=== PATIENT | male | born 1955 | race Caucasian/White ===

== ENCOUNTER 2020-08-17 13:43 | Emergency (ER) | payer MEDICARE, MEDICAID, SELFPAY ==
--- NOTE | ~2020-08-17 | CT_ITS ---
EXAMINATION: CT abdomen pelvis wo con DATE: 08/17/2020 14:07 INDICATION: Right flank and upper quadrant pain TECHNIQUE: Computed tomography (CT) of the abdomen and pelvis was performed without intravenous contr ast. The dose-length product (DLP) was 706.60 mGy-cm. Automated exposure control and iterative recons truction technique were employed. COMPARISON: None FINDINGS: The lung bases are clear. The heart size is normal. The liver, spleen, gallbladder, and adr enal glands are normal. Punctate calcifications of the pancreas are consistent with chronic pancreati tis. There is a 2.3 cm cyst of the left kidney. The kidneys are otherwise unremarkable. No stones are identified in the kidneys, ureters, or bladder. There is no hydronephrosis or hydroureter. No pathol ogically enlarged abdominal or pelvic lymph nodes are identified. There is no free intraperitoneal ga s or evidence of bowel obstruction. A moderate volume of colonic stool is present. There is mild enla rgement of the appendix. However, there is intraluminal gas in the appendix and no periappendiceal in flammatory change. Enlargement is likely normal variant. There is moderate lumbar spondylosis. IMPRESSION: 1. No CT correlate for the patient's symptoms. 2. Findings consistent with chronic pancreatitis. Reviewed, dictated and finalized at location A. [employer]
--- NOTE | ~2020-08-17 | US_ITS ---
US abdomen limited INDICATION: Right upper quadrant pain. PROCEDURE: Realtime right upper abdominal ultrasound. COMPARISON: No prior studies for comparison. FINDINGS: The pancreas is normal without focal mass or pancreatic ductal dilation. Liver echotexture is heterogeneous and slightly increased, consistent with fatty infiltration of the liver. There is normal directional flow in the portal vein. The gallbladder is normal without stones, gallbladder wall thickening or pericholecystic fluid. Comm on bile duct measures 4.7 mm. IMPRESSION: 1: Hepatic steatosis. Otherwise, unremarkable limited abdominal ultrasound. Reviewed, dictated and finalized at location A. [employer]
[2020-08-17 13:48] VITALS: BP 146/90; PULSE 84; RESP 20; TEMP 37; O2SAT 97
--- NOTE | 2020-08-17 13:57 | ED.GENADULT ---
HPI - General Adult General Chief complaint: Urogenital-Male Stated complaint: ambulance Time Seen by Provider: 08/17/20 13:49 Source: patient and EMS Mode of arrival: ambulatory Limitations: no limitations History of Present Illness HPI narrative: Getachew is a 64M with a PMH of depression, tobacco abuse, adjustment disorder and HTN that was brought to the ED by EMS for right flank pain and RUQ pain. Pain began last night but began to get must worse this morning. It became so bad that he had to call EMS. No CP, SOB, vomiting, dysuria, or hematuria. No fevers or chills. Related Data Allergies Allergy/AdvReac Type Severity Reaction Status Date / Time No Known Allergies Allergy Verified 08/17/20 14:05 Review of Systems Constitutional: Constitutional: Reports no additional constitutional complaints, Denies chills and Denies fever(s) Eyes: Eyes: Reports no additional eye complaints ENT: Reports system reviewed and no additional complaints, except as documented Cardiovascular: Cardiovascular: Reports no additional cardiovascular complaints Respiratory: Respiratory: Reports no additional respiratory complaints Gastrointestinal: Gastrointestinal: Reports as per HPI Comments: APOLLO and right flank pain Genitourinary: Genitourinary: Reports as per HPI Musculoskeletal: Musculoskeletal: Reports no additional musculoskeletal complaints Integumentary/Breasts: Skin/Breast: Reports system reviewed and no additional complaints, except as docu Neurologic: Reports system reviewed and no additional complaints, except as documented Psychiatric: Psychiatric: Reports no additional psychiatric complaints Endocrine: Endocrine: Reports no additional endocrine complaints Hematologic/Lymphatic: Hematologic/Lymphatic: Reports no additional hematologic/lymphatic complaints Allergic/Immunologic: Allergic/Immunologic: Reports no additional allergic/immunologic complaints [facility] Past Medical History Medical History (Updated 08/17/20 @ 16:25 by Jarad Mora DO) Adjustment disorder Depression Hypertension Nicotine dependence Surgical History Surgical History History of back surgery 3 surgeries. Ruptured discs. . History of left knee surgery Family History Family History Father , Age 87 Hypertension Diabetes mellitus CAD (coronary artery disease) Mother , Age 74 Aortic aneurysm Father Family history of type 2 diabetes mellitus Hypertension Family history of coronary artery disease Mother Family history of aortic aneurysm Social History Social History Smoking packs per day: 1 Smoking cigarettes per day: 20.0 Years smoked: 47 Smoking pack-years: 47.00 Smoking status: Current every day smoker Alcohol intake: unknown Gender identity (if verbalized by the patient): Male Exam Const: General: alert Orientation/consciousness: patient oriented x3 Limitations: No altered mental status Other: In moderate distress from the pain and did have a little trouble giving history at first but improved after meds. HENMT: Other: normocephalic, atraumatic Eyes: Pupils: Equal, round and reactive pupils present Neck: Neck: normal visual inspection Chest: Chest palpation & inspection: normal inspection of the chest Resp: Effort & Inspection: normal respiratory effort Auscultation: clear to auscultation bilaterally Cardio: Rate: regular rate Rhythm: regular rhythm Heart sounds: no murmurs GI: Inspection: non-distended GI Palp: Yes Soft to palpation, No Tenderness to palpation present (GI), No Guarding due to palpation present (GI) and No Rigid due to palpation : Other: Left sided CVA tenderness Skin: General skin exam: normal color Rashes: no rashes Neuro: General: patient oriented x3, moves all
[2020-08-17 14:29] LABS: Basophils Absolute Auto 0.04 K/mm3 (0.00-0.10); Basophils Percent Auto 0.3 % (0.0-1.0); Eosinophils Absolute Auto 0.08 K/mm3 (0.02-0.50); Eosinophils Percent Auto 0.7 % (1.0-6.0); Hematocrit 44.1 % (40.0-54.0); Hemoglobin 15.1 g/dL (14.0-18.0); Immature Granulocyte Absolute 0.07 K/mm3 (0.00-0.00); Immature Granulocyte Percent A 0.6 % (0.0-0.0); Lymphocytes Absolute Auto 2.68 K/mm3 (1.10-4.50); Lymphocytes Percent Auto 22.2 % (18.0-42.0); Mean Corpuscular HGB Conc 34.2 g/dL (32.0-36.0); Mean Corpuscular Hemoglobin 31.4 pg (27.0-31.0); Mean Corpuscular Volume 91.7 fL (78.0-102.0); Mean Platelet Volume 9.3 fl (8.7-11.0); Monocytes Absolute Auto 0.73 K/mm3 (0.10-0.90); Monocytes Percent Auto 6.1 % (2.0-11.0); Neutrophils Absolute Auto 8.5 K/mm3 (1.7-7.2); Neutrophils Percent Auto 70.1 % (50.0-70.0); Platelet Count Result 302 K/mm3 (150-420); Red Blood Count 4.81 M/mm3 (4.70-6.10); Red Cell Distribution Width 12.1 % (11.6-14.4); White Blood Count 12.1 K/mm3 (4.8-10.8)
[2020-08-17 14:48] LABS: Alanine Aminotransferase 28 U/L (16-63); Albumin Level 3.7 g/dL (3.4-5.0); Alkaline Phosphatase 86 U/L (46-116); Anion Gap 12 mmol/L (8-16); Aspartate Amino Transferase 12 U/L (15-37); Bilirubin,Total 0.3 mg/dL (0.00-1.00); Blood Urea Nitrogen 15 mg/dL (7-18); Calcium 9.1 mg/dL (8.5-10.1); Carbon Dioxide 25 mmol/L (21-32); Chloride 99 mmol/L (98-108); Estimated CRCL calculation 59 ml/min; Estimated Glomerular Filt Rate 59; Glucose 197 mg/dL (70-99); Lipase 393 U/L (73-393); Osmolality Calculated 287 mOsm/kg (285-295); Potassium 4.2 mmol/L (3.5-5.1); Sodium 136 mmol/L (136-145); Total Protein 8.2 g/dL (6.4-8.2)
[2020-08-17 15:30] VITALS: BP 148/91; PULSE 80; RESP 20; O2SAT 97
[2020-08-17 16:03] LABS: Appearance Urine Clear (Clear); Bilirubin Urine Negative (Negative); Color Urine Yellow (Yellow); Glucose Urine UA Negative (Negative); Ketones Urine Negative (Negative); Leukocyte Esterase Ur Negative (Negative); Nitrate Urine Negative (Negative); Protein Urine Trace (Negative); Urobilinogen Urine 0.2 mg/dL (0.2-1.0)
[2020-08-17 16:22] LABS: Add Urine Microscopic? YES; Blood Urine Trace-lysed (Negative)
[2020-08-17 16:23] LABS: Transitional Epi Cells Urine Occasional /hpf
[2020-08-17 16:54] VITALS: BP 145/96; PULSE 79; RESP 20; TEMP 36.6; O2SAT 96
== END 2020-08-17 16:56 | disposition home or self-care (01) ==
PROVIDERS: Emergency Provider Family Medicine; PCP Family Medicine
DX: K86.1 Other chronic pancreatitis (principal); I10 Essential (primary) hypertension; F17.200 Nicotine dependence, unspecified, uncomplicated
CPT/HCPCS: 36415; 74176; 76705; 80053; 81001; 83690; 85025; 99283; 99284

== ENCOUNTER 2021-02-14 12:45 | Inpatient (IN) | payer MEDICARE, MEDICAID, SELFPAY ==
--- NOTE | ~2021-02-14 | XR_ITS ---
EXAMINATION: XR chest 1V portable INDICATION: Weakness, COVID 19 positive TECHNIQUE: Portable AP chest at 1357 hours COMPARISON: 12/10/2017 FINDINGS: There are minimal opacities of the mid and lower lung zones. No pleural effusion or pneumot horax is identified. The cardiomediastinal silhouette is stable. IMPRESSION: 1. Minimal airspace opacities of the mid and lower lung zones, consistent with atelectasis versus pne umonia. Reviewed, dictated and finalized at location B. IMPRESSION: 1. Minimal airspace opacities of the mid and lower lung zones, consistent with atelectasis versus pneumonia.
[2021-02-14 13:27] LABS: SARS-CoV-2 Ag Positive (Negative)
[2021-02-14 13:32] VITALS: BP 131/86; PULSE 72; RESP 14; TEMP 37.4; O2SAT 98
[2021-02-14 13:49] LABS: Hematocrit 40.9 % (37.0-46.0); Hemoglobin 14.2 g/dL (12.4-15.3); Mean Corpuscular HGB Conc 34.7 g/dL (32.0-36.0); Mean Corpuscular Hemoglobin 32.2 pg (27.0-31.0); Mean Corpuscular Volume 92.7 fL (78.0-102.0); Mean Platelet Volume 9.4 fl (8.7-11.0); Platelet Count Result 192 K/mm3 (150-420); Red Blood Count 4.41 M/mm3 (4.70-6.10); Red Cell Distribution Width 12.4 % (11.6-14.4); White Blood Count 5.3 K/mm3 (4.8-10.8)
[2021-02-14 14:04] LABS: Partial Thromboplastin Time 30.2 SEC (23.90-30.70); Prothrombin Time 10.7 Seconds (9.50-12.10)
--- NOTE | 2021-02-14 14:10 | ED.SOB ---
HPI - SOB/Dyspnea General Chief Complaint: Weakness Stated Complaint: SOB/Weak/dizzy Source: patient and RN notes reviewed Mode of arrival: ambulatory Limitations: no limitations History of Present Illness MD elicited complaint: shortness of breath and cough Onset (ago): day(s) (4) Timing: constant Severity: moderate Exacerbating factors: lying flat, exertion and coughing Relieving factors: nothing Associated symptoms: fever, cough and nausea/vomiting Treatment prior to arrival: none Related Data Home oxygen amount: none Allergies Allergy/AdvReac Type Severity Reaction Status Date / Time No Known Allergies Allergy Verified 08/26/20 10:54 Review of Systems Review of Systems: All systems reviewed & are unremarkable except as noted in HPI and below Constitutional: Constitutional: Reports as per HPI Cardiovascular: Cardiovascular: Denies chest pain and Denies rapid heart rate Respiratory: Respiratory: Reports as per HPI Gastrointestinal: Gastrointestinal: Reports as per HPI and Denies diarrhea Genitourinary: Genitourinary: Denies dysuria and Denies urinary frequency [facility] Past Medical History Medical History Adjustment disorder Chronic pancreatitis Depression Fatty liver Hypertension Nicotine dependence Umbilical hernia Surgical History Surgical History History of back surgery 3 surgeries. Ruptured discs. . History of left knee surgery Family History Family History Father , Age 87 Hypertension Diabetes mellitus CAD (coronary artery disease) Mother , Age 74 Aortic aneurysm Social History Social History Smoking packs per day: 1 Smoking cigarettes per day: 20.0 Years smoked: 47 Smoking pack-years: 47.00 Smoking status: Current every day smoker Alcohol intake: unknown Gender identity (if verbalized by the patient): Male Exam Const: General: no acute distress and ill appearing acutely Nutritional Appearance: well nourished and thin Orientation/consciousness: patient oriented x3 HENMT: Head: normal to inspection Ears: external ears normal Eyes: Conjunctivae: conjunctivae normal Pupils: Equal, round and reactive pupils present EOM: EOMs intact bilaterally Neck: Neck: normal visual inspection Resp: Effort & Inspection: normal respiratory effort Auscultation: rhonchi left upper and right upper Cardio: Rate: regular rate Rhythm: regular rhythm GI: GI Palp: Yes Soft to palpation and No Tenderness to palpation present (GI) Auscultation: normal bowel sounds Back/Spine/Pelvis: Cervical Spine: cervical ROM normal Thoracic/Lumbar Spine: thoraco-lumbar ROM normal Skin: General skin exam: normal color Rashes: no rashes Neuro: General: patient oriented x3, moves all extremities, no meningeal signs and no focal motor deficits Speech: normal speech Gait exam (Neuro): Normal gait present Psych: Mental Status: mental status grossly normal Affect: normal affect Attitude: cooperative Thought content: Yes Normal thought content present Course Vital Signs Vital signs: Vital Signs Temperature 37.4 C 02/14/21 13:32 Pulse Rate 72 02/14/21 13:32 Respiratory Rate 14 02/14/21 13:32 Blood Pressure 131/86 02/14/21 13:32 Pulse Oximetry 98 02/14/21 13:32 Temperature 37.4 C 02/14/21 13:32 Pulse Rate 73 02/14/21 14:52 Respiratory Rate 22 H 02/14/21 14:52 Blood Pressure 109/95 H 02/14/21 14:52 Pulse Oximetry 99 02/14/21 14:52 MDM - SOB/Dyspnea Lab Data Result diagrams: 02/14/21 13:43 02/14/21 13:43 Labs: Lab Results 02/14/21 02/14/21 02/14/21 Range/Units 12:57 13:43 13:43 WBC 5.3 (4.8-10.8) K/mm3 RBC 4.41 L (4.70-6.10) M/mm3 Hgb 14.2 (12.4-15.3) g/
[2021-02-14 14:11] LABS: D Dimer 0.89 mg/L (0.19-0.50)
[2021-02-14 14:17] LABS: Alanine Aminotransferase 33 U/L (16-63); Albumin Level 3.7 g/dL (3.4-5.0); Alkaline Phosphatase 83 U/L (46-116); Anion Gap 11 mmol/L (8-16); Aspartate Amino Transferase 18 U/L (15-37); Bilirubin,Total 0.2 mg/dL (0.00-1.00); Blood Urea Nitrogen 17 mg/dL (7-18); Calcium 8.3 mg/dL (8.5-10.1); Carbon Dioxide 25 mmol/L (21-32); Chloride 101 mmol/L (98-108); Estimated CRCL calculation 55 ml/min; Estimated Glomerular Filt Rate 54; Ferritin 531 ng/mL (26-388); Glucose 137 mg/dL (70-99); Magnesium 1.7 mg/dL (1.8-2.4); Osmolality Calculated 287 mOsm/kg (285-295); Potassium 3.8 mmol/L (3.5-5.1); Sodium 137 mmol/L (136-145); Total Protein 7.2 g/dL (6.4-8.2)
[2021-02-14 14:26] LABS: CRP 0.8 mg/dL (0.0-0.9)
[2021-02-14 14:35] LABS: Band Neutrophils Percent 2 % (0-6); Lymphocytes Absolute Manual 1.59 K/mm3 (1.1-4.5); Lymphocytes Percent Manual 30 % (18-44); Monocytes Absolute Manual 0.63 K/mm3 (0.1-0.90); Monocytes Percent Manual 12 % (3-9); Neutrophils Absolute Manual 3.07 K/mm3 (1.3-6.7); Neutrophils Percent Manual 56 % (46-73); Platelet Estimate Adequate (Adequate); Total Cells Counted 100
[2021-02-14] MEDS: DEXAMETHASONE SOD PHOS INJ 4 MG/ML VIAL 10 MG IV PUSH (14:45)
[2021-02-14 14:52] VITALS: BP 109/95; PULSE 73; RESP 22; O2SAT 99
[2021-02-14 16:00] VITALS: BP 114/84; PULSE 70; RESP 20; TEMP 37.4; O2SAT 98
[2021-02-14 16:30] VITALS: BP 113/78; PULSE 90; RESP 22; O2SAT 98
[2021-02-14] MEDS: ALBUTEROL SULFATE (*SP) INHALER 2 PUFF INHALATION ×2 (17:44→20:01)
--- NOTE | 2021-02-14 17:47 | PC.NURSE ---
PAtient admitted to room 209 with isolation precautions fro covid, is alert and oriented with no c/o pain, oriented to room and surroundings, voices understanding.
[2021-02-14 17:49] VITALS: BMI 26.7
[2021-02-14] MEDS: REMDESIVIR 200 MG/NS 250 ML 200 MG/250 ML BAG 250 MG IVPB (19:04)
[2021-02-14] MEDS: ENOXAPARIN 30 MG/0.3 ML SYRINGE SUB-Q (19:05)
[2021-02-14 21:43] VITALS: BP 127/67; PULSE 80; RESP 20; TEMP 37.3; O2SAT 95
[2021-02-14] MEDS: traZODone HCL 50 MG TABLET (22:21)
[2021-02-15] VITALS: BP 124/74; PULSE 91; RESP 20; TEMP 36.4; O2SAT 95
[2021-02-15] MEDS: ENOXAPARIN 30 MG/0.3 ML SYRINGE SUB-Q (05:06)
[2021-02-15 05:26] LABS: Basophils Absolute Auto 0.01 K/mm3 (0.00-0.10); Basophils Percent Auto 0.1 % (0.0-1.0); Hematocrit 43.4 % (37.0-46.0); Immature Granulocyte Absolute 0.05 K/mm3 (0.00-0.00); Immature Granulocyte Percent A 0.6 % (0.0-0.0); Lymphocytes Absolute Auto 0.99 K/mm3 (1.10-4.50); Mean Corpuscular HGB Conc 34.6 g/dL (32.0-36.0); Mean Corpuscular Hemoglobin 31.9 pg (27.0-31.0); Mean Corpuscular Volume 92.3 fL (78.0-102.0); Mean Platelet Volume 10.1 fl (8.7-11.0); Monocytes Absolute Auto 0.55 K/mm3 (0.10-0.90); Monocytes Percent Auto 6.1 % (2.0-11.0); Neutrophils Absolute Auto 7.4 K/mm3 (1.7-7.2); Neutrophils Percent Auto 82.2 % (50.0-70.0); Platelet Count Result 218 K/mm3 (150-420); Red Cell Distribution Width 12.3 % (11.6-14.4)
[2021-02-15 05:44] LABS: Alanine Aminotransferase 33 U/L (16-63); Albumin Level 3.7 g/dL (3.4-5.0); Alkaline Phosphatase 82 U/L (46-116); Anion Gap 10 mmol/L (8-16); Aspartate Amino Transferase 17 U/L (15-37); Bilirubin,Total 0.2 mg/dL (0.00-1.00); Blood Urea Nitrogen 19 mg/dL (7-18); Carbon Dioxide 27 mmol/L (21-32); Chloride 103 mmol/L (98-108); Estimated CRCL calculation 62 ml/min; Estimated Glomerular Filt Rate > 60; Glucose 196 mg/dL (70-99); Osmolality Calculated 297 mOsm/kg (285-295); Potassium 4.6 mmol/L (3.5-5.1); Sodium 140 mmol/L (136-145); Total Protein 7.6 g/dL (6.4-8.2)
[2021-02-15 08:00] VITALS: BP 125/91; PULSE 84; RESP 16; TEMP 36.4; O2SAT 94
--- NOTE | 2021-02-15 11:48 | PM.SD2 ---
Same Day Admit/Disch: HPI History of Present Illness Chief complaint: COVID WEAKNESS Narrative: Getachew Méndez is a 65 year old male that presented to urgent care after having 4 days of nausea vomiting, body aches, headaches and fatigue. Patient has a past medical history of chronic pancreatitis, depression, hypertension, nicotine dependence. Patient's vital signs 125/91, 84, 16, 97.5, 94% on room air, WBCs 9.0 hemoglobin 15.0 hematocrit 43.4, platelets 218, sodium 140, potassium 4.6, BUN 19 creatinine 1.32 magnesium 1.7 liver function test within normal limits, positive covid chest x-ray indicate Covid pneumonia. Patient condition has improved he is currently satting 95% on room air I did ambulate patient to the restroom by monitoring his oxygen level which was 100% on room air. Patient agrees he is ready for discharge he will be discharged with dexamethasone, inhalers cough suppressant and decongestant. He will have to follow-up with his primary care physician if further remdesivir treatment is needed. [facility] Past Medical History Medical History Adjustment disorder Chronic pancreatitis Depression Fatty liver Hypertension Nicotine dependence Umbilical hernia Surgical History Surgical History History of back surgery 3 surgeries. Ruptured discs. . History of left knee surgery Family History Family History Father , Age 87 Hypertension Diabetes mellitus CAD (coronary artery disease) Mother , Age 74 Aortic aneurysm Social History Social History Smoking packs per day: 1 Smoking cigarettes per day: 20.0 Years smoked: 47 Smoking pack-years: 47.00 Smoking status: Current every day smoker Tobacco type: cigarettes Alcohol intake: unknown Substance use: unknown Gender identity (if verbalized by the patient): Male Spiritual care concerns: No Same Day Admit/Disch: Med Pre-admit Medications Home Medications Medication Instructions Recorded Confirmed Type metoprolol tartrate 25 mg tablet 25 mg PO BID #60 tablet 09/27/20 02/14/21 Rx sertraline 50 mg tablet 50 mg PO DAILY #30 tablet 09/27/20 02/14/21 Rx Exam Narrative: GENERAL: This is a well-nourished, well-developed patient, in no apparent distress. HEAD: normocephalic, atraumatic. EYES: PERRL. Sclera clear/white. Vision is grossly intact. EARS: External ears normal, auditory canals clear and without drainage, TMs normal without perforation. Hearing grossly intact. NOSE: External nose normal with no obvious nasal discharge, nares without redness, no rhinorrhea. THROAT: Mucous membranes moist, posterior pharynx clear. NECK: Neck supple, non-tender without lymphadenopathy, masses or thyromegaly. CARDIOVASCULAR: Regular rate and rhythm without murmurs, gallops, or rubs. RESPIRATORY: Diminished GASTROINTESTINAL: Abdomen soft, non-tender, nondistended. Bowel sounds are active. No hepato-splenomegaly, or palpable masses. No guarding. SKIN: warm, intact with no suspicious lesions or rash, good texture and turgor. NEURO: awake, alert, and oriented to person, place and time. There were no obvious focal neurologic abnormalities. Steady gait EXTREMITIES: Normal range of motion. No edema. No calf tenderness. Negative Homans sign bilaterally. BACK: Nontender without deformity or crepitance. No flank tenderness. DS: Data Data Completed and Pending Labs on day of discharge: Labs from last 24 hours 02/15/21 02/15/21 02/15/21 05:02 05:02 05:02 WBC 9.0 RBC 4.70 Hgb 15.0 Hct 43.4 MCV 92.3 MCH 31.9 H MCHC 34.6 RDW 12.3 Plt Count 218 MPV 10.1 Immature Gran % (Auto) 0.6 H Neut % (Auto) 82.2 H Lymph % (Auto) 11.0 L [place] % (Auto) 6.1 Eos % (Auto) 0.0 L Baso % (Auto
--- NOTE | 2021-02-15 14:47 | PC.NURSE ---
Pt discharged in stable condition. Discharge instructions given to pt. Isolation status reviewed with pt. Pt verbalized understanding of instructions. Pt taken to family car via WC by this RN.
--- NOTE | 2021-02-16 14:20 | PC.NURSE ---
Pt states he received and understood his discharge instructions. Pt also states the staff did great .
== END 2021-02-15 14:20 | disposition home or self-care (01) | DRG 178 ==
LOC: CHSED 15:12 → CHS2ND 16:26
PROVIDERS: Admitting Provider Emergency Medicine; Emergency Provider Emergency Medicine; PCP Family Medicine; Visit Provider Emergency Medicine
DX: U07.1 COVID-19 (principal); K86.1 Other chronic pancreatitis; K76.0 Fatty (change of) liver, not elsewhere classified; F32.9 Major depressive disorder, single episode, unspecified; F17.200 Nicotine dependence, unspecified, uncomplicated; F43.20 Adjustment disorder, unspecified; I10 Essential (primary) hypertension; F17.210 Nicotine dependence, cigarettes, uncomplicated
CPT/HCPCS: 36415; 71045; 80053; 82728; 83735; 85025; 85380; 85610; 85730; 86140; 87426; 96374; 99285; A9270; C9803; J1100; J1650

== ENCOUNTER 2021-02-24 13:20 | Emergency (ER) | payer MEDICARE, MEDICAID, SELFPAY ==
--- NOTE | ~2021-02-24 | XR_ITS ---
EXAMINATION: XR chest 1V portable INDICATION: Left-sided chest pain, COVID 19 pneumonia TECHNIQUE: Portable AP chest at 1440 hours COMPARISON: 02/14/2021 FINDINGS: There are patchy opacities of the mid and lower lung zones. No pleural effusion or pneumoth orax is identified. The cardiomediastinal silhouette is normal. IMPRESSION: 1. Patchy opacities of the mid and lower lung zones, likely COVID 19 pneumonia. Reviewed, dictated and finalized at location A.
[2021-02-24 13:20] VITALS: BP 111/76; PULSE 69; RESP 20; TEMP 37.1; O2SAT 98
[2021-02-24 13:25] VITALS: PULSE 69
--- NOTE | 2021-02-24 13:34 | ECG_ITS ---
Measurements Intervals [place] Rate: 62 P: 35 GA: 127 QRS: 62 QRSD: 72 T: 18 QT: 356 QTc: 362 Interpretive Statements SINUS RHYTHM NORMAL ECG Electronically Signed On 02-24-2021 14:07:22 CDT by Tate Romero D.O.
[2021-02-24 14:05] LABS: Basophils Absolute Auto 0.09 K/mm3 (0.00-0.10); Basophils Percent Auto 0.6 % (0.0-1.0); Eosinophils Absolute Auto 0.07 K/mm3 (0.02-0.50); Eosinophils Percent Auto 0.5 % (1.0-6.0); Hematocrit 41.3 % (37.0-46.0); Immature Granulocyte Absolute 0.91 K/mm3 (0.00-0.00); Immature Granulocyte Percent A 6.3 % (0.0-0.0); Lymphocytes Percent Auto 16.6 % (18.0-42.0); Mean Corpuscular HGB Conc 33.9 g/dL (32.0-36.0); Mean Corpuscular Hemoglobin 31.6 pg (27.0-31.0); Mean Corpuscular Volume 93.2 fL (78.0-102.0); Mean Platelet Volume 9.8 fl (8.7-11.0); Monocytes Absolute Auto 1.09 K/mm3 (0.10-0.90); Monocytes Percent Auto 7.5 % (2.0-11.0); Neutrophils Absolute Auto 9.9 K/mm3 (1.7-7.2); Neutrophils Percent Auto 68.5 % (50.0-70.0); Platelet Count Result 213 K/mm3 (150-420); Red Blood Count 4.43 M/mm3 (4.70-6.10); Red Cell Distribution Width 12.6 % (11.6-14.4); White Blood Count 14.5 K/mm3 (4.8-10.8)
--- NOTE | 2021-02-24 14:16 | ED.GENADULT ---
HPI - General Adult General Chief complaint: Weakness Stated complaint: ambulance Source: patient Mode of arrival: EMS History of Present Illness HPI narrative: Eleuterio Méndez is a 65M with a PMH of fatty liver, chronic pancreatitis, nicotine abuse and HTN as well as recent admission for COVID pneumonia that presented to the ED by EMS for worsening symptoms.He was admitted from 02/14 to 02/15. He felt well when he was discharged but has felt worse the last few days. He is very tired, fatigued, achy, has a headache, and get short of breath easy. He has also had a constant dull chest pain for a few days as well. He has been compliant with his meds. He denies syncope. Related Data Allergies Allergy/AdvReac Type Severity Reaction Status Date / Time No Known Allergies Allergy Verified 02/23/21 14:14 Review of Systems Constitutional: Constitutional: Reports fatigue and Reports weakness Eyes: Eyes: Reports no additional eye complaints ENT: Reports system reviewed and no additional complaints, except as documented Cardiovascular: Cardiovascular: Reports as per HPI Respiratory: Respiratory: Reports as per HPI Gastrointestinal: Gastrointestinal: Reports nausea Genitourinary: Genitourinary: Reports no additional male genitourinary complaints Musculoskeletal: Musculoskeletal: Reports as per HPI Integumentary/Breasts: Skin/Breast: Reports system reviewed and no additional complaints, except as docu Neurologic: Reports system reviewed and no additional complaints, except as documented Psychiatric: Psychiatric: Reports no additional psychiatric complaints Endocrine: Endocrine: Reports no additional endocrine complaints Hematologic/Lymphatic: Hematologic/Lymphatic: Reports no additional hematologic/lymphatic complaints Allergic/Immunologic: Allergic/Immunologic: Reports no additional allergic/immunologic complaints [facility] Past Medical History Medical History Adjustment disorder Chronic pancreatitis Depression Fatty liver Hypertension Nicotine dependence Umbilical hernia Surgical History Surgical History History of back surgery 3 surgeries. Ruptured discs. . History of left knee surgery Family History Family History Father , Age 87 Hypertension Diabetes mellitus CAD (coronary artery disease) Mother , Age 74 Aortic aneurysm Social History Social History Smoking packs per day: 1 Smoking cigarettes per day: 20.0 Years smoked: 47 Smoking pack-years: 47.00 Smoking status: Current every day smoker Tobacco type: cigarettes Alcohol intake: unknown Substance use: unknown Gender identity (if verbalized by the patient): Male Spiritual care concerns: No Exam Const: General: no acute distress and alert; No confusion Limitations: No altered mental status HENMT: Head: normal to inspection Other: atraumatic Eyes: Conjunctivae: conjunctivae normal Pupils: Equal, round and reactive pupils present Neck: Neck: normal visual inspection Chest: Chest palpation & inspection: normal inspection of the chest Resp: Effort & Inspection: normal respiratory effort, not labored, no retractions and not tachypneic Other: slight end expiratory wheezes Cardio: Rate: regular rate Rhythm: regular rhythm GI: Inspection: non-distended GI Palp: Yes Soft to palpation, No Tenderness to palpation present (GI) and No Guarding due to palpation present (GI) Back/Spine/Pelvis: Back: no CVA tenderness Skin: General skin exam: normal color Neuro: General: patient oriented x3 and moves all extremities Extrem: General: normal to inspection Psych: Mental Status: mental status grossly normal Course Course Emergency Course: Getachew was evaluated. Order
[2021-02-24 14:17] LABS: Prothrombin Time 10.5 Seconds (9.50-12.10)
[2021-02-24 14:27] LABS: Alanine Aminotransferase 44 U/L (16-63); Albumin Level 2.8 g/dL (3.4-5.0); Alkaline Phosphatase 69 U/L (46-116); Anion Gap 8 mmol/L (8-16); Aspartate Amino Transferase 14 U/L (15-37); Bilirubin,Total 0.3 mg/dL (0.00-1.00); Blood Urea Nitrogen 21 mg/dL (7-18); Calcium 8.3 mg/dL (8.5-10.1); Carbon Dioxide 27 mmol/L (21-32); Chloride 97 mmol/L (98-108); Estimated CRCL calculation 53 ml/min; Estimated Glomerular Filt Rate 52; Glucose 252 mg/dL (70-99); Lipase 263 U/L (73-393); NT Pro B Type Natriuretic Pept 34 pg/mL (0-125); Osmolality Calculated 286 mOsm/kg (285-295); Potassium 4.2 mmol/L (3.5-5.1); Sodium 132 mmol/L (136-145); Total Protein 6.1 g/dL (6.4-8.2)
[2021-02-24 14:28] LABS: CRP 4.6 mg/dL (0.0-0.9)
[2021-02-24 14:29] LABS: Influenza Control Valid (Valid)
[2021-02-24 14:41] LABS: Total Cells Counted 100
[2021-02-24 14:42] LABS: Band Neutrophils Percent 1 % (0-6); Basophils Percent Manual 0 % (0-1); Eosinophils Percent Manual 0 % (1-6); Lymphocytes Absolute Manual 2.17 K/mm3 (1.1-4.5); Lymphocytes Percent Manual 15 % (18-44); Metamyelocytes Percent 3 %; Monocytes Absolute Manual 1.01 K/mm3 (0.1-0.90); Monocytes Percent Manual 7 % (3-9); Myelocytes Percent 4 %; Neutrophils Absolute Manual 10.29 K/mm3 (1.3-6.7); Neutrophils Percent Manual 70 % (46-73); Platelet Estimate Adequate (Adequate)
[2021-02-24 14:45] LABS: Lactic Acid Reflex 1.8 mmol/L (0.4-2.0)
[2021-02-24] MEDS: ALBUTEROL SULFATE (*SP) INHALER 2 PUFF INHALATION (14:48)
[2021-02-24 15:08] VITALS: BP 126/83; PULSE 72; RESP 20; TEMP 36.3; O2SAT 100
--- NOTE | 2021-02-24 15:11 | PC.NURSE ---
1400 PT RESTING PER COT. 1430 PT RESTING PER COT, NO COMPLAINTS OR NEEDS VOICED. CALL FAM IN REACH 1500 REPORT TO SARAH DIOR
[2021-02-24 15:12] LABS: Add Urine Microscopic? YES; Appearance Urine Clear (Clear); Bilirubin Urine Negative (Negative); Blood Urine Negative (Negative); Color Urine Yellow (Yellow); Glucose Urine UA 2+ (Negative); Ketones Urine Negative (Negative); Leukocyte Esterase Ur Negative (Negative); Nitrate Urine Negative (Negative); Protein Urine Trace (Negative); Specific Grav Ur >= 1.030 (1.010-1.020); Urobilinogen Urine 0.2 mg/dL (0.2-1.0); pH Urine 5.5 (5.0-8.0)
[2021-02-24 15:20] LABS: Bacteria Urine 3+ /hpf; Mucus Urine Few /lpf; RBC Urine 0-2 /hpf (0-2); Squamous Epithelial Cell Urine None seen /hpf (Few); WBC Urine 0-3 /hpf (0-3)
[2021-02-24] MEDS: SODIUM CHLORIDE 0.9% IV 1,000 ML 999 ML IV CONT (15:44)
[2021-02-24 16:16] VITALS: BP 107/62; PULSE 79; RESP 18; O2SAT 98
[2021-02-24 16:45] VITALS: BP 100/82; PULSE 79; RESP 20; O2SAT 98
== END 2021-02-24 16:46 | disposition home or self-care (01) ==
PROVIDERS: Emergency Provider Family Medicine; PCP Family Medicine
DX: E86.0 Dehydration (principal); U07.1 COVID-19; J12.82 Pneumonia due to coronavirus disease 2019; R73.9 Hyperglycemia, unspecified; R06.02 Shortness of breath; I10 Essential (primary) hypertension; F17.200 Nicotine dependence, unspecified, uncomplicated
CPT/HCPCS: 36415; 71045; 80053; 81001; 83605; 83690; 83880; 84484; 85025; 85060; 85610; 86140; 87804; 93005; 96360; 99283; 99284; J7030

== ENCOUNTER 2022-11-14 14:47 | Emergency (ER) | payer MEDICARE, SELFPAY ==
[2022-11-14] VITALS (12 sets, daily range): BP systolic 126–152; BP diastolic 77–94; PULSE 52–74; RESP 14–21; TEMP 36.2; O2SAT 96–99
--- NOTE | ~2022-11-14 | XR_ITS ---
EXAMINATION: XR chest 2V DATE: 11/14/2022 16:01 INDICATION: Left shoulder pain. TECHNIQUE: Frontal and lateral views of the chest were obtained. COMPARISON: Chest single view 02/24/2021, CT abdomen and pelvis 08/17/2020 FINDINGS: There is no pneumonia, pleural effusion, or pneumothorax. The heart size is normal. IMPRESSION: 1. No acute cardiopulmonary disease. Reviewed, dictated and finalized at location A.
--- NOTE | 2022-11-14 15:34 | ECG_ITS ---
Measurements Intervals [place] Rate: 60 P: 46 CO: 214 QRS: 36 QRSD: 82 T: 70 QT: 406 QTc: 408 Interpretive Statements SINUS RHYTHM WITH FIRST DEGREE AV BLOCK COMPARED TO ECG 02/24/2021 13:44:51 FIRST DEGREE AV BLOCK NOW PRESENT Electronically Signed On 11-15-2022 16:19:53 CDT by Jasiel Brewster M.D.
--- NOTE | 2022-11-14 15:37 | ED.GENADULT ---
HPI - General Adult General Chief complaint: Extremity Injury, Upper Stated complaint: chest pain Time Seen by Provider: 11/14/22 15:24 History of Present Illness HPI narrative: The patient is a 67-year-old male who has been moving furniture over the last few days. He was okay yesterday. Today, he woke up at 8:00 a.m. and has had pain in the left upper chest left shoulder and proximal upper arm up to the elbow, much worse with movement. Range of motion reproduces his pain. The pain is not reproduced by palpation of the chest wall. No shortness of breath. No fevers or chills. No cough that is different than normal since he does have a smoker's cough. Does feel weak and tired. Related Data Allergies Allergy/AdvReac Type Severity Reaction Status Date / Time No Known Allergies Allergy Verified 11/14/22 15:01 Review of Systems Review of Systems: All systems reviewed & are unremarkable except as noted in HPI and below Constitutional: Constitutional: Denies chills, Denies excessive sweating, Reports fatigue, Denies fever(s), Denies headache(s) and Reports weakness Eyes: Eyes: Denies change in vision and Denies photophobia ENT: Denies dysphagia, Denies dizziness, Denies headache(s), Denies lip swelling, Denies nasal congestion, Denies sore throat and Denies tongue swelling Cardiovascular: Cardiovascular: Reports chest pain, Denies syncope, Denies rapid heart rate and Denies dyspnea Respiratory: Respiratory: Reports cough ( Chronic), Denies dyspnea and Denies wheezing Gastrointestinal: Gastrointestinal: Denies abdominal pain, Denies constipation, Denies dysphagia, Denies diarrhea, Denies nausea and Denies vomiting Genitourinary: Genitourinary: Denies hematuria, Denies dysuria, Denies urinary frequency and Denies urinary urgency Musculoskeletal: Musculoskeletal: Denies back pain, Denies myalgias, Denies arthralgias, Denies joint swelling and Denies numbness Integumentary/Breasts: Skin/Breast: Denies pruritus, Denies erythema and Denies rash Neurologic: Denies confusion, Denies dizziness, Denies syncope, Denies headache(s), Denies focal weakness, Denies numbness and Reports weakness Psychiatric: Psychiatric: Denies anxiety and Denies confusion Endocrine: Endocrine: Denies excessive sweating and Reports fatigue Hematologic/Lymphatic: Hematologic/Lymphatic: Denies easy bleeding and Denies easy bruising Allergic/Immunologic: Allergic/Immunologic: Denies lip swelling, Denies tongue swelling and Denies wheezing PMFSH Past Medical History Medical History Adjustment disorder Chronic pancreatitis Depression Exercise intolerance Fatty liver Hypertension Nicotine dependence Umbilical hernia Surgical History Surgical History History of back surgery 3 surgeries. Ruptured discs. . History of left knee surgery Family History Family History Father , Age 87 Hypertension Diabetes mellitus CAD (coronary artery disease) Mother , Age 74 Aortic aneurysm Social History Social History Smoking packs per day: 1 Smoking cigarettes per day: 20.0 Years smoked: 47 Smoking pack-years: 47.00 Tobacco type: cigarettes Alcohol intake: unknown Substance use: unknown Living arrangements: alone Gender identity (if verbalized by the patient): Male Spiritual care concerns: No Exam Const: General: healthy appearing, no acute distress, alert and well nourished Nutritional Appearance: well nourished Orientation/consciousness: patient oriented x3 Limitations: no limitations Other: the patient looks tired HENMT: Head: normal to inspection Ears: external ears normal Face/Nose/Sinus: normal facial exam Face and sinus: normal facial exam Mouth: Yes moist mucou
[2022-11-14] MEDS: HYDROcodone/acetaminophen (*CRX) 5-325 MG TABLET 1 TAB PO (15:44)
[2022-11-14] MEDS: ORPHENADRINE CITRATE 30 MG/ML 2 ML VIAL 60 MG IV PUSH (15:44)
[2022-11-14] MEDS: ACETAMINOPHEN 325 MG TABLET 650 MG PO (15:44)
[2022-11-14 15:49] LABS: Basophils Absolute Auto 0.04 K/mm3 (0.00-0.10); Basophils Percent Auto 0.5 % (0.0-1.0); Eosinophils Absolute Auto 0.08 K/mm3 (0.02-0.50); Hematocrit 39.8 % (37.0-46.0); Hemoglobin 13.2 g/dL (12.4-15.3); Immature Granulocyte Absolute 0.03 K/mm3 (0.00-0.00); Immature Granulocyte Percent A 0.4 % (0.0-0.0); Lymphocytes Percent Auto 28.6 % (18.0-42.0); Mean Corpuscular HGB Conc 33.2 g/dL (32.0-36.0); Mean Corpuscular Hemoglobin 31.5 pg (27.0-31.0); Mean Platelet Volume 9.3 fl (8.7-11.0); Monocytes Percent Auto 7.8 % (2.0-11.0); Neutrophils Absolute Auto 4.7 K/mm3 (1.7-7.2); Neutrophils Percent Auto 61.7 % (50.0-70.0); Platelet Count Result 221 K/mm3 (150-420); Red Blood Count 4.19 M/mm3 (4.70-6.10); Red Cell Distribution Width 12.2 % (11.6-14.4); White Blood Count 7.7 K/mm3 (4.8-10.8)
[2022-11-14 16:04] LABS: D Dimer 0.66 mg/L (0.19-0.50)
[2022-11-14 16:07] LABS: Alanine Aminotransferase 27 U/L (16-63); Albumin Level 3.7 g/dL (3.4-5.0); Alkaline Phosphatase 90 U/L (46-116); Anion Gap 7 mmol/L (8-16); Aspartate Amino Transferase 20 U/L (15-37); Bilirubin,Total 0.3 mg/dL (0.00-1.00); Blood Urea Nitrogen 18 mg/dL (7-18); Calcium 9.5 mg/dL (8.5-10.1); Carbon Dioxide 30 mmol/L (21-32); Chloride 104 mmol/L (98-108); Estimated CRCL calculation 63 ml/min; Estimated Glomerular Filt Rate > 60; Glucose 151 mg/dL (70-99); Osmolality Calculated 296 mOsm/kg (285-295); Potassium 4.5 mmol/L (3.5-5.1); Sodium 141 mmol/L (136-145); Total Protein 7.3 g/dL (6.4-8.2)
[2022-11-14 16:14] LABS: Creatine Kinase 291 U/L (39-308); NT Pro B Type Natriuretic Pept 40 pg/mL (0-125); Troponin I 10.3 ng/L (0.00-60.4)
[2022-11-14 16:15] LABS: CRP < 0.5 mg/dL (0.0-0.9)
== END 2022-11-14 17:20 | disposition home or self-care (01) ==
LOC: CHSED 16:56
PROVIDERS: Emergency Provider Emergency Medicine; PCP Family Medicine
DX: M25.512 Pain in left shoulder (principal); R07.9 Chest pain, unspecified; I10 Essential (primary) hypertension; F17.210 Nicotine dependence, cigarettes, uncomplicated
CPT/HCPCS: 36415; 71046; 80053; 82550; 83880; 84484; 85025; 85380; 86140; 93005; 96374; 99284; A9270; J2360

== ENCOUNTER 2023-01-13 22:45 | Emergency (ER) | payer OTHER, SELFPAY ==
--- NOTE | ~2023-01-13 | CT_ITS ---
CT scan of the Neck Technique: 2.5 mm axial scans were obtained through the neck without IV contrast administration. Heladio nal and sagittal reconstructions of the neck were obtained. Dose reduction technique was used on this scan by utilizing automated exposure control and iterative reconstruction technique. The dose-length product (DLP) was 589.73 mGy-cm. Clinical History: Impacted food bolus Findings: There is no evidence of any significant cervical lymphadenopathy. Several small, nonenlarged jugulo- digastric and posterior cervical lymph nodes are noted bilaterally. Parapharyngeal spaces appear norm al bilaterally. The parotid and submandibular glands appear normal. Questionable mild diffuse esophageal wall thickening. No food bolus/foreign body evident. No soft tis chrystal masses are seen in the neck. The thyroid gland appears normal. Images of the lung apices reveal no abnormalities. Impression: Questionable mild esophageal wall thickening. Correlate for esophagitis. No impacted food bolus identified. Reviewed, dictated and finalized at [facility]. Impression: Questionable mild esophageal wall thickening. Correlate for esophagitis. No impacted food bolus identified.
[2023-01-13 22:45] VITALS: BP 135/86; PULSE 85; RESP 18; TEMP 37.2; O2SAT 99
--- NOTE | 2023-01-13 22:57 | ECG_ITS ---
Measurements Intervals [place] Rate: 75 P: 36 [place]: 159 QRS: 23 QRSD: 73 T: 65 QT: 364 QTc: 407 Interpretive Statements SINUS RHYTHM LOW QRS VOLTAGE IN PRECORDIAL LEADS [QRS DEFLECTION < 1.0 mV IN CHEST LEADS] DELAYED R-WAVE PROGRESSION ABNORMAL ECG COMPARED TO ECG 11/14/2022 15:00:13 NO SIGNIFICANT CHANGES Electronically Signed On 01-14-2023 10:20:18 CDT by Frank Oh M.D.
--- NOTE | 2023-01-13 22:59 | ED.NAVMDI ---
HPI - Nausea/Vomiting/Diarrhea General Chief complaint: Nausea/Vomiting/Diarrhea Stated complaint: Nausea/Vomiting Source: patient Mode of arrival: EMS Limitations: no limitations History of Present Illness HPI Narrative: patient is a 67-year-old male with choking on a piece of steak 3 days ago. Patient is here with continued nausea and vomiting and feels like something is still stuck in his throat. He has no further choking. patient said he has not been able to take food or water for the past 3 days due to vomiting. MD elicited complaint: nausea and vomiting Onset (ago): day(s) (3) Description of vomiting: food contents Associated nausea: Yes Associated abdominal pain: No Location of pain: other (throat) Pain consistency: constant Severity: mild Quality: dull Exacerbating factors: eating Relieving factors: none Associated symptoms: nausea/vomiting Related Data Home Medications Medication Instructions Recorded Confirmed sertraline 50 mg tablet 50 mg PO 01/13/23 Allergies Allergy/AdvReac Type Severity Reaction Status Date / Time No Known Allergies Allergy Verified 11/14/22 15:01 Review of Systems Review of Systems: All systems reviewed & are unremarkable except as noted in HPI and below Constitutional: Constitutional: Reports no additional constitutional complaints Eyes: Eyes: Reports no additional eye complaints ENT: Reports system reviewed and no additional complaints, except as documented Cardiovascular: Cardiovascular: Reports no additional cardiovascular complaints Respiratory: Respiratory: Reports no additional respiratory complaints Gastrointestinal: Gastrointestinal: Reports no additional gastrointestinal complaints Genitourinary: Genitourinary: Reports no additional male genitourinary complaints Musculoskeletal: Musculoskeletal: Reports no additional musculoskeletal complaints Integumentary/Breasts: Skin/Breast: Reports system reviewed and no additional complaints, except as docu Neurologic: Reports system reviewed and no additional complaints, except as documented Psychiatric: Psychiatric: Reports no additional psychiatric complaints Endocrine: Endocrine: Reports no additional endocrine complaints Hematologic/Lymphatic: Hematologic/Lymphatic: Reports no additional hematologic/lymphatic complaints Allergic/Immunologic: Allergic/Immunologic: Reports no additional allergic/immunologic complaints [facility] Past Medical History Medical History Adjustment disorder Chronic pancreatitis Depression Exercise intolerance Fatty liver Hypertension Nicotine dependence Umbilical hernia Surgical History Surgical History History of back surgery 3 surgeries. Ruptured discs. . History of left knee surgery Family History Family History Father , Age 87 Hypertension Diabetes mellitus CAD (coronary artery disease) Mother , Age 74 Aortic aneurysm Social History Social History Smoking packs per day: 1 Smoking cigarettes per day: 20.0 Years smoked: 47 Smoking pack-years: 47.00 Tobacco type: cigarettes Alcohol intake: unknown Substance use: unknown Living arrangements: alone Gender identity (if verbalized by the patient): Male Spiritual care concerns: No Exam Const: General: ill appearing Nutritional Appearance: well nourished Orientation/consciousness: patient oriented x3 HENMT: Head: normal to inspection Eyes: Conjunctivae: conjunctivae normal Neck: Neck: normal visual inspection Chest: Chest palpation & inspection: normal inspection of the chest Resp: Effort & Inspection: normal respiratory effort Auscultation: clear to auscultation bilaterally Cardio: Rate: regular rate Rhythm: regular rhythm
[2023-01-13 23:00] VITALS: BP 139/87; PULSE 85; RESP 20; O2SAT 96
[2023-01-13] MEDS: SODIUM CHLORIDE 0.9% IV 1,000 ML 999 ML IV CONT (23:11)
[2023-01-13 23:30] VITALS: BP 156/99; PULSE 72; RESP 18; O2SAT 100
[2023-01-13 23:31] LABS: Basophils Absolute Auto 0.05 K/mm3 (0.00-0.10); Basophils Percent Auto 0.4 % (0.0-1.0); Eosinophils Absolute Auto 0.05 K/mm3 (0.02-0.50); Eosinophils Percent Auto 0.4 % (1.0-6.0); Hematocrit 46.5 % (37.0-46.0); Hemoglobin 15.8 g/dL (12.4-15.3); Immature Granulocyte Absolute 0.07 K/mm3 (0.00-0.00); Immature Granulocyte Percent A 0.5 % (0.0-0.0); Lymphocytes Absolute Auto 1.84 K/mm3 (1.10-4.50); Lymphocytes Percent Auto 13.4 % (18.0-42.0); Mean Corpuscular Hemoglobin 31.8 pg (27.0-31.0); Mean Corpuscular Volume 93.6 fL (78.0-102.0); Mean Platelet Volume 9.5 fl (8.7-11.0); Monocytes Absolute Auto 0.84 K/mm3 (0.10-0.90); Monocytes Percent Auto 6.1 % (2.0-11.0); Neutrophils Absolute Auto 10.9 K/mm3 (1.7-7.2); Neutrophils Percent Auto 79.2 % (50.0-70.0); Platelet Count Result 252 K/mm3 (150-420); Red Blood Count 4.97 M/mm3 (4.70-6.10); Red Cell Distribution Width 12.7 % (11.6-14.4); White Blood Count 13.8 K/mm3 (4.8-10.8)
[2023-01-13 23:47] LABS: Lactic Acid Reflex 1.6 mmol/L (0.4-2.0)
[2023-01-14] VITALS: BP 155/99; PULSE 64
[2023-01-14 00:21] LABS: Alanine Aminotransferase 26 U/L (16-63); Albumin Level 3.9 g/dL (3.4-5.0); Alkaline Phosphatase 100 U/L (46-116); Anion Gap 9 mmol/L (8-16); Aspartate Amino Transferase 10 U/L (15-37); Bilirubin,Total 0.4 mg/dL (0.00-1.00); Blood Urea Nitrogen 28 mg/dL (7-18); Calcium 9.1 mg/dL (8.5-10.1); Carbon Dioxide 29 mmol/L (21-32); Chloride 103 mmol/L (98-108); Glucose 181 mg/dL (70-99); Lipase 93 U/L (16-77); Magnesium 1.9 mg/dL (1.8-2.4); Osmolality Calculated 302 mOsm/kg (285-295); Potassium 4.6 mmol/L (3.5-5.1); Sodium 141 mmol/L (136-145); Total Protein 8.1 g/dL (6.4-8.2); Troponin I 6.5 ng/L (0.00-60.4)
[2023-01-14 00:24] LABS: Partial Thromboplastin Time 27.9 SEC (23.90-30.70)
[2023-01-14 00:31] LABS: Estimated Glomerular Filt Rate 52
[2023-01-14 01:00] VITALS: BP 152/108; PULSE 90; RESP 16
[2023-01-14 02:00] VITALS: BP 160/103; PULSE 89; RESP 12; O2SAT 98
--- NOTE | 2023-01-14 02:18 | PC.NURSE ---
0205-PT BP NOTED TO TREND UPWARD. PHYSICIAN MADE AWARE. NO NEW ORDERS. PHYSICIAN ADVISED TO LET KNOW NEXT READING. PT REMAINS DENIES HEADACHE, CHEST PAIN, DIZZINESS, VISION CHANGES. CALL LIGHT REMAINS IN REACH.
[2023-01-14 03:00] VITALS: BP 149/89; PULSE 88; RESP 18; O2SAT 96
--- NOTE | 2023-01-14 03:22 | PC.NURSE ---
0315- EMS TRANSPORT SETUP WITH [facility] BEING CONTACT. 0312-IT SECURITY CONSULTING DIRECTOR CALLED REPORT TO MARY BETH SMITH. TRANSPORT CAN BE SETUP.
--- NOTE | 2023-01-20 13:29 | PC.NURSE ---
blood culture reviewed, no growth after 5 days
== END 2023-01-14 03:43 | disposition short-term general hospital (02) ==
PROVIDERS: Emergency Provider Emergency Medicine; PCP Family Medicine
DX: T18.3XXA Foreign body in small intestine, initial encounter (principal); I10 Essential (primary) hypertension; F32.A Depression, unspecified; F17.210 Nicotine dependence, cigarettes, uncomplicated; Z79.899 Other long term (current) drug therapy
CPT/HCPCS: 36415; 70490; 80053; 83605; 83690; 83735; 84484; 85025; 85610; 85730; 87040; 93005; 96360; 99285; J7030

== ENCOUNTER 2023-01-14 07:13 | Observation (INO) | payer OTHER, SELFPAY ==
[2023-01-14] VITALS (9 sets, daily range): BP systolic 109–150; BP diastolic 71–90; PULSE 64–83; RESP 14–20; TEMP 36.1–36.7; O2SAT 96–100; BMI 26.2
--- NOTE | 2023-01-14 04:15 | ADMGEN ---
This patient, Getachew Méndez, was admitted to 2 Medical Room 242-. Patient/family oriented to hospital policies and general routines including ID bracelet, bed and alarms, visiting hours, pain management, procedures, bathroom and other care routines, personal items, smoking policy, room service/diet, and visiting hours. Information on how to activate the Rapid Response Team has been discussed. Patient/Family are encouraged to report perceived risks to care and to ask questions if they do not understand what they are told or what they should do.
--- NOTE | 2023-01-14 05:14 | PC.NURSE ---
When admitting patient, suicide screen conducted and patient answered yes to several questions. He has had fleeting thoughts of killing himself within the past month due to losing his 4 years ago. He answered yes to the questions about having thoughts on how he would kill himself and that he had previously had some intention of acting on them. Informed Dr. Esparza of these admission question findings, that he falls in the high risk category, and she stated the patient does not need to transfer to the ICU at this time.
--- NOTE | 2023-01-14 06:41 | WPDGICN ---
Assessment and Plan Assessment and plan (1) Food bolus obstruction of intestine: Code(s): K56.699 - Other intestinal obstruction unspecified as to partial versus complete obstruction Status: Acute Assessment and Plan: when eating steak a few days ago he felt that it got stuck. It has not moved since. He has not been able to drink water or any other liquids. (2) Chronic pancreatitis: Code(s): K86.1 - Other chronic pancreatitis Status: Acute Assessment and Plan: He carries a diagnosis of chronic pancreatitis. His lipase is mildly elevated this admission. Plan EGD this morning to remove food bolus. GI Consult Note Consult date/time: 01/14/23 06:41 HPI: Getachew Méndez is a 67 year old male Present emergency room during the night with complaints of unable to swallow. He states that he choked on a piece of steak about 3 days ago and has not moved. He is not able to swallow water or saliva. He has had occasional episodes of food going down slowly in the past but never anything like this. Review of Systems Review of Systems: All systems reviewed & are unremarkable except as noted in HPI and below PMFSH Past Medical History Medical History Adjustment disorder Chronic pancreatitis Depression Exercise intolerance Fatty liver Hypertension Nicotine dependence Umbilical hernia Surgical History Surgical History History of back surgery 3 surgeries. Ruptured discs. 1989'. History of left knee surgery 1979' Family History Family History Father , Age 87 Hypertension Diabetes mellitus CAD (coronary artery disease) Mother , Age 74 Aortic aneurysm Social History Social History Smoking packs per day: 0.3 Smoking cigarettes per day: 6.0 Years smoked: 55 Smoking pack-years: 16.50 Smoking status: Current every day smoker Tobacco type: cigarettes Alcohol intake: current Drinks per week: 1 Substance use: current Substance use type: marijuana Lack of Transportation: No Lack of Food: Often True Current Housing: I Have Housing Concerned About Future Housing: No Difficulty Paying Gas/Electric Bills: YES Difficulty Paying for Meds: No Currently Unemployed: No Education: High School Diploma/GED Difficulty w/ Childcare or Family Care: No Living arrangements: alone Gender identity (if verbalized by the patient): Male Spiritual care concerns: No Meds Home Medications and Allergies Home Medications Medication Instructions Recorded Confirmed Type umeclidinium 62.5 mcg/actuation 1 inh inhalation DAILY #30 ea 04/03/22 01/14/23 Rx blister powder for inhalation (Incruse Ellipta) naproxen 500 mg tablet 500 mg PO BID #14 tabs 11/14/22 01/14/23 Rx metoprolol tartrate 25 mg tablet 25 mg PO BID #60 tabs 12/12/22 01/14/23 Rx sertraline 50 mg tablet 50 mg PO HS 01/13/23 01/14/23 History Allergies Allergy/AdvReac Type Severity Reaction Status Date / Time No Known Allergies Allergy Verified 01/14/23 04:49 Vital Signs Vital Signs - 24 hr 01/14/23 04:52 01/14/23 05:21 Temperature 36.6 C Pulse Rate 82 Respiratory Rate 20 Blood Pressure 117/83 Pulse Oximetry 100 Oxygen Delivery Room Air Exam Const: General: other ( Tired Appearing) Nutritional Appearance: average body habitus Orientation/consciousness: patient oriented x3 Resp: Auscultation: clear to auscultation bilaterally Cardio: Rhythm: regular rhythm GI: GI Palp: Yes Soft to palpation, No Tenderness to palpation present (GI) and Yes No hepatosplenomegaly present Auscultation: normal bowel sounds Neuro: General: patient oriented x3 AMG Consult Billing Inpatient Consult Inpatient Consults: [id number] Consu
[2023-01-14] MEDS: LACTATED RINGERS 1,000 ML 150 ML IV CONT (11:02)
--- NOTE | 2023-01-14 12:21 | WPDANESEPPF ---
Anes - Initial Pre Proc Eval Procedure: Operation Date: 01/14/23 14:45 Proposed Procedures p Esophagogastroduodenoscopy - Omar Hutchinson MD Date/Time: 01/14/23 12:21 Surgeon: Sally Esparza DO Pre Op Diagnosis: FOOD BOLUS Patient Data Age: 67 Gender: M Height: 1.83 m Weight: 87.5 kg Last Vital Signs Temp 36.1 C L 01/14/23 11:03 Pulse 81 01/14/23 11:03 Resp 18 01/14/23 11:03 BP 109/79 01/14/23 11:03 Pulse Ox 98 01/14/23 11:03 O2 Del Method Room Air 01/14/23 11:03 Allergies Allergy/AdvReac Type Severity Reaction Status Date / Time No Known Allergies Allergy Verified 01/14/23 11:02 Home Medications Medication Instructions Recorded Confirmed Type umeclidinium 62.5 mcg/actuation 1 inh inhalation DAILY #30 ea 04/03/22 01/14/23 Rx blister powder for inhalation (Incruse Ellipta) naproxen 500 mg tablet 500 mg PO BID #14 tabs 11/14/22 01/14/23 Rx metoprolol tartrate 25 mg tablet 25 mg PO BID #60 tabs 12/12/22 01/14/23 Rx sertraline 50 mg tablet 50 mg PO HS 01/13/23 01/14/23 History Patient hx anesthesia problems: none Family hx anesthesia problems: none Results Review: All pre-operative results and documents have been reviewed as part of the pre-operative evaluation. FORMERLY [facility], [facility]–1983 Past Medical History Medical History Adjustment disorder Chronic pancreatitis Depression Exercise intolerance Fatty liver Hypertension Nicotine dependence Umbilical hernia Surgical History Surgical History History of back surgery 3 surgeries. Ruptured discs. . History of left knee surgery Family History Family History Father , Age 87 Hypertension Diabetes mellitus CAD (coronary artery disease) Mother , Age 74 Aortic aneurysm Social History Social History Smoking packs per day: 0.3 Smoking cigarettes per day: 6.0 Years smoked: 55 Smoking pack-years: 16.50 Smoking status: Current every day smoker Tobacco type: cigarettes Alcohol intake: current Drinks per week: 1 Substance use: current Substance use type: marijuana Lack of Transportation: No Lack of Food: Often True Current Housing: I Have Housing Concerned About Future Housing: No Difficulty Paying Gas/Electric Bills: YES Difficulty Paying for Meds: No Currently Unemployed: No Education: High School Diploma/GED Difficulty w/ Childcare or Family Care: No Living arrangements: alone Gender identity (if verbalized by the patient): Male Spiritual care concerns: No Anes - Eval Final PreProcedure Day of Procedure 01/14/23 12:21 Patient weight: normal Heart: regular rate and rhythm Lungs: decreased breath sounds Airway: Mallampati scale class II Neurological: alert and oriented Last oral intake: >/= 8 hours ASA classification: III Emergent: no Anesthetic plan: proceed Anesthesia type and monitoring: general GIVS and standard monitoring Results Review: All pre-operative results and documents have been reviewed as part of the pre-operative evaluation. Informed Consent: The patient's anesthetic plan and its attendant risks and benefits were discussed with the patient/family/POA. Questions were solicited and answers provided to the satisfaction of the patient/family/POA.
[2023-01-14] MEDS: BENZOCAINE (*SP) 60 ML SPRAY CAN (HURRICAINE) 1 SPRAY MUCOUS MEM (12:37)
--- NOTE | 2023-01-14 14:06 | PM.IMHP ---
H&P: HPI History of Present Illness Date/Time: 01/14/23 14:06 Chief Complaint: dysphagia, nausea and vomiting Narrative: HPI Narrative: ?patient is a 67-year-old male with choking on a piece of steak 3 days ago.? Patient is here with continued nausea and vomiting and feels like something is still stuck in his throat.? He has no further choking. patient said he has not been able to take food or water for the past 3 days due to vomiting. MD elicited complaint: nausea and vomiting Onset (ago): day(s) (3) Description of vomiting: food contents Associated nausea: Yes Associated abdominal pain: No Location of pain: other (throat) Pain consistency: constant Severity: mild Quality: dull Exacerbating factors: eating Relieving factors: none Associated symptoms: nausea/vomiting Patient is 67-year-old male presented emergency department with complaint difficulty swallowing he states did 3 days ago he ate steak and feels there is stuck in his throat unable to swallow and has nausea or vomiting, will consult GI for further recommendation patient will have EGD further evaluate, patient also has thoughts of suicide, patient states his 3 years ago and December and he feels very depressed and does not want to live and has thoughts of suicide, patient states he does not have any specific plan is just feel depressed, patient remained clinically stable and has a sitter with him. Patient clinically stable will have crisis team come and evaluate the patient and recommended patient will benefit going inpatient [facility]. Patient is medically clear to be assessed by crisis team further evaluation and possibly to [facility] Patient admitted as observation status Review of Systems Review of Systems: All systems reviewed & are unremarkable except as noted in HPI and below [facility] Past Medical History Medical History Adjustment disorder Chronic pancreatitis Depression Exercise intolerance Fatty liver Hypertension Nicotine dependence Umbilical hernia Surgical History Surgical History History of back surgery 3 surgeries. Ruptured discs. . History of left knee surgery Family History Family History Father , Age 87 Hypertension Diabetes mellitus CAD (coronary artery disease) Mother , Age 74 Aortic aneurysm Social History Social History Smoking packs per day: 0.3 Smoking cigarettes per day: 6.0 Years smoked: 55 Smoking pack-years: 16.50 Smoking status: Current every day smoker Tobacco type: cigarettes Alcohol intake: current Drinks per week: 1 Substance use: current Substance use type: marijuana Lack of Transportation: No Lack of Food: Often True Current Housing: I Have Housing Concerned About Future Housing: No Difficulty Paying Gas/Electric Bills: YES Difficulty Paying for Meds: No Currently Unemployed: No Education: High School Diploma/GED Difficulty w/ Childcare or Family Care: No Living arrangements: alone Gender identity (if verbalized by the patient): Male Spiritual care concerns: No Meds Home Medications and Allergies Home Medications Medication Instructions Recorded Confirmed Type umeclidinium 62.5 mcg/actuation 1 inh inhalation DAILY #30 ea 04/03/22 01/14/23 Rx blister powder for inhalation (Incruse Ellipta) naproxen 500 mg tablet 500 mg PO BID #14 tabs 11/14/22 01/14/23 Rx metoprolol tartrate 25 mg tablet 25 mg PO BID #60 tabs 12/12/22 01/14/23 Rx sertraline 50 mg tablet 50 mg PO HS 01/13/23 01/14/23 History Allergies Allergy/AdvReac Type Severity Reaction Status Date / Time No Known Allergies Allergy Verified 01/14/23 11:02 Vital Signs Vital Signs - 24 hr 01/14/23
[2023-01-14 14:15] LABS: Hematocrit 46.1 % (42.0-52.0); Mean Corpuscular HGB Conc 32.5 g/dl (32-36); Mean Corpuscular Hemoglobin 31.3 pg (26-34); Mean Platelet Volume 9.8 fl (7.4-10.4); Platelet Count Result 242 k/mm3 (150-375); Red Cell Distribution Width 13.1 % (11.5-14.5); White Blood Count 11.6 K/mm3 (4.5-10.0)
[2023-01-14 14:23] LABS: Alanine Aminotransferase 24 U/L (6-50); Albumin Level 4.4 g/dL (3.5-5.1); Alkaline Phosphatase 78 U/L (38-126); Anion Gap 10 mmol/L (8-16); Aspartate Amino Transferase 23 U/L (17-59); Bilirubin,Total 0.7 mg/dL (0.2-1.3); Blood Urea Nitrogen 30 mg/dL (9-20); Calcium 9.2 mg/dL (8.4-10.2); Carbon Dioxide 27 mmol/L (22-30); Chloride 102 mmol/L (98-107); Estimated CRCL calculation 64 ml/min; Estimated Glomerular Filt Rate > 60; Glucose 135 mg/dL (65-110); Magnesium 2.1 mg/dL (1.6-2.3); Potassium 4.2 mmol/L (3.4-5.0); Sodium 139 mmol/L (137-145)
[2023-01-14 16:21] LABS: Barbiturate Screen Urine Negative (Negative); Benzodiazepines Screen Urine Negative (Negative)
[2023-01-14 16:22] LABS: Cannabinoid Screen Urine Negative (Negative); Cocaine Screen Urine Negative (Negative); Methadone Screen Urine Negative (Negative); Opiate Screen Urine Negative (Negative); Phencyclidine Screen Urine Negative (Negative)
[2023-01-14] MEDS: SUCRALFATE SUSP 100 MG/ML 10 ML UDC 1000 MG PO (16:23)
[2023-01-14 16:38] LABS: Influenza A QL RT-PCR Negative (Negative); Influenza B QL RT-PCR Negative (Negative); RSV RNA, RT-PCR Negative (Negative); SARS-CoV-2 RNA PCR Negative (Negative)
[2023-01-14 16:46] LABS: Amphetamine Screen Urine Positive (Negative)
--- NOTE | 2023-01-14 18:23 | PM.DS ---
DS: Admitting Diagnosis Discharge Date 01/15/2023 Admitting Diagnosis dysphagia, nausea and vomiting DS: Discharge Diagnosis Discharge Diagnosis (1) Food bolus obstruction of intestine: Code(s): K56.699 - Other intestinal obstruction unspecified as to partial versus complete obstruction Status: Inactive Assessment and Plan: Patient is 67-year-old male presented emergency department with complaint difficulty swallowing he states did 3 days ago he ate steak and feels there is stuck in his throat unable to swallow and has nausea or vomiting, will consult GI for further recommendation patient will have EGD further evaluate, patient also has thoughts of suicide, patient states his 3 years ago and December and he feels very depressed and does not want to live and has thoughts of suicide, patient states he does not have any specific plan is just feel depressed, patient remained clinically stable and has a sitter with him. Patient clinically stable will have crisis team come and evaluate the patient and recommended patient will benefit going inpatient [facility]. (2) MDD (major depressive disorder): Code(s): F32.9 - Major depressive disorder, single episode, unspecified Status: Acute Assessment and Plan: Patient with major depressive disorder most likely reactive as patient is 3 years ago and is still feels depressed and suicidal, patient is medically clear to be assessed by crisis team to further evaluate patient will benefit going to inpatient [facility]ry [facility]. (3) Weakness: Code(s): R53.1 - Weakness Status: Acute Assessment and Plan: Will have PT OT evaluate DS: Summary Hospital Course Reason for hospitalization: dysphagia, nausea and vomiting Narrative: HPI Narrative: ?patient is a 67-year-old male with choking on a piece of steak 3 days ago.? Patient is here with continued nausea and vomiting and feels like something is still stuck in his throat.? He has no further choking. patient said he has not been able to take food or water for the past 3 days due to vomiting. MD elicited complaint: nausea and vomiting Onset (ago): day(s) (3) Description of vomiting: food contents Associated nausea: Yes Associated abdominal pain: No Location of pain: other (throat) Pain consistency: constant Severity: mild Quality: dull Exacerbating factors: eating Relieving factors: none Associated symptoms: nausea/vomiting Patient is 67-year-old male presented emergency department with complaint difficulty swallowing he states did 3 days ago he ate steak and feels there is stuck in his throat unable to swallow and has nausea or vomiting, will consult GI for further recommendation patient will have EGD further evaluate, patient also has thoughts of suicide, patient states his 3 years ago and December and he feels very depressed and does not want to live and has thoughts of suicide, patient states he does not have any specific plan is just feel depressed, patient remained clinically stable and has a sitter with him.? Patient clinically stable will have crisis team come and evaluate the patient and recommended patient will benefit going inpatient [facility]. Hospital Course: Patient with dysphagia was seen by GI had EGD there was no FB seen, patient clinical symptoms have improved and able to tolerate his diet, patient is clinically stable, will discharge patient today. Time Spent with Patient Time attestation: Total time spent providing and/or coordinating discharge services: Exam Narrative: Patient is comfortable, NAD HEENT: eyes are clear and none icteric LUNGS: Normal respiratory effort ABD: Distended Lower extremities: no edema SKIN: nonjaundiced Neuro: grossly intact. DS: Data Data Completed and Pending Pending studies at discharge: Pending at discharge 01/14/23 12:45 Surgical [PTH] Routine Labs on day of discharge: Labs from last 24 ho
--- NOTE | 2023-01-14 19:34 | PC.NURSE ---
On 01/14/23, the graduate nurse, Michelle Carbajal, provided care and completed [facility] documentation on this patient. I have reviewed the student's documentation and agree with the findings.
== END 2023-01-14 21:20 | disposition home or self-care (01) ==
PROVIDERS: Internal Medicine Gastroenterology; Admitting Provider Family Medicine; PCP Family Medicine; Visit Provider Family Medicine
PROC: 0DJ08ZZ Inspection of Upper Intestinal Tract, Via Natural or Artificial Opening Endoscopic (ICD-10-PCS; CPT 43235; principal; 2023-01-14 14:45)
DX: K22.10 Ulcer of esophagus without bleeding (principal); K29.50 Unspecified chronic gastritis without bleeding; K56.699 Other intestinal obstruction unspecified as to partial versus complete obstruction; K86.1 Other chronic pancreatitis; K42.9 Umbilical hernia without obstruction or gangrene; Z20.822 Contact with and (suspected) exposure to COVID-19; R79.89 Other specified abnormal findings of blood chemistry; F43.20 Adjustment disorder, unspecified; F32.A Depression, unspecified; K76.0 Fatty (change of) liver, not elsewhere classified; I10 Essential (primary) hypertension; Z72.3 Lack of physical exercise; F17.210 Nicotine dependence, cigarettes, uncomplicated; F10.90 Alcohol use, unspecified, uncomplicated; F12.90 Cannabis use, unspecified, uncomplicated; Z79.51 Long term (current) use of inhaled steroids; Z79.1 Long term (current) use of non-steroidal anti-inflammatories (NSAID); Z79.899 Other long term (current) drug therapy
CPT/HCPCS: 43239; 36415; 80053; 80307; 83735; 85027; 87637; 88305; A9270; G0378; J2704; J7120

== ENCOUNTER 2023-03-29 18:35 | Emergency (ER) | payer MEDICARE, SELFPAY ==
--- NOTE | ~2023-03-29 | CT_ITS ---
EXAMINATION: CT abdomen pelvis w con INDICATION: Periumbilical pain TECHNIQUE: Computed tomographic images of the abdomen and pelvis were obtained after the administrati on of 100 cc of Omnipaque 350 intravenous contrast. The dose-length product (DLP) was 579.59 mGy-cm. Automated exposure control and iterative reconstruction technique were employed. COMPARISON: 08/17/2020 FINDINGS: Minimal dependent atelectasis is present in the lung bases. The heart size is normal. The l iver, spleen, gallbladder, and adrenal glands are normal. Punctate calcifications throughout the panc reas are consistent with chronic pancreatitis. There is a 2.6 cm cyst of the left kidney. The right k idney is unremarkable. There are multiple mildly dilated loops of small bowel. The distal small bowel is normal in caliber. No free intraperitoneal gas is identified. The appendix is normal. There is an umbilical hernia containing fat. There is moderate lumbar spondylosis. IMPRESSION: 1. Dilated small bowel, consistent with ileus versus partial obstruction. 2. Chronic pancreatitis. Reviewed, dictated and finalized at location F.
[2023-03-29 18:35] VITALS: BP 149/97; PULSE 98; RESP 14; TEMP 36.7; O2SAT 98
[2023-03-29] MEDS: SODIUM CHLORIDE 0.9% IV 1,000 ML 999 ML IV CONT ×2 (18:35→19:54)
--- NOTE | 2023-03-29 18:49 | ED.GENADULT ---
HPI - General Adult General Chief complaint: Abdominal Pain Stated complaint: abdominal pain and nausea Time Seen by Provider: 03/29/23 18:39 History of Present Illness HPI narrative: 67yo man presents with 3 days constant periumbilical abdominal pain. No fever. +watery diarrhea. Related Data Home Medications Medication Instructions Recorded Confirmed sertraline 50 mg tablet 50 mg PO HS 01/13/23 01/14/23 Allergies Allergy/AdvReac Type Severity Reaction Status Date / Time No Known Allergies Allergy Verified 03/29/23 18:46 Review of Systems Review of Systems: All systems reviewed & are unremarkable except as noted in HPI and below Constitutional: Constitutional: Denies chills and Denies fever(s) ENT: Denies dysphagia Cardiovascular: Cardiovascular: Denies chest pain Respiratory: Respiratory: Denies dyspnea [facility] Past Medical History Medical History Adjustment disorder Chronic pancreatitis Depression Exercise intolerance Fatty liver Hypertension Nicotine dependence Umbilical hernia Surgical History Surgical History History of back surgery 3 surgeries. Ruptured discs. . History of left knee surgery Family History Family History Father , Age 87 Hypertension Diabetes mellitus CAD (coronary artery disease) Mother , Age 74 Aortic aneurysm Social History Social History Smoking packs per day: 0.3 Smoking cigarettes per day: 6.0 Years smoked: 55 Smoking pack-years: 16.50 Smoking status: Current every day smoker Tobacco type: cigarettes Alcohol intake: current Drinks per week: 1 Substance use: current Substance use type: marijuana Lack of Transportation: No Lack of Food: Often True Current Housing: I Have Housing Concerned About Future Housing: No Difficulty Paying Gas/Electric Bills: YES Difficulty Paying for Meds: No Currently Unemployed: No Education: High School Diploma/GED Difficulty w/ Childcare or Family Care: No Living arrangements: alone Gender identity (if verbalized by the patient): Male Spiritual care concerns: No Exam Const: General: healthy appearing Nutritional Appearance: well nourished Eyes: Conjunctivae: conjunctivae normal Resp: Effort & Inspection: normal respiratory effort Auscultation: clear to auscultation bilaterally Cardio: Rate: regular rate Rhythm: regular rhythm Heart sounds: no murmurs GI: Inspection: non-distended GI Palp: Yes Soft to palpation and Yes Tenderness to palpation present (GI) Skin: General skin exam: normal color, no jaundice and no pallor Course Vital Signs Vital signs: Vital Signs Temperature 36.7 C 03/29/23 18:35 Pulse Rate 98 03/29/23 18:35 Respiratory Rate 14 03/29/23 18:35 Blood Pressure 149/97 H 03/29/23 18:35 Pulse Oximetry 98 03/29/23 18:35 Oxygen Delivery Room Air 03/29/23 18:35 Temperature 36.7 C 03/29/23 18:35 Pulse Rate 90 03/29/23 19:40 Respiratory Rate 20 03/29/23 19:40 Blood Pressure 158/90 H 03/29/23 19:40 Pulse Oximetry 96 03/29/23 19:40 Oxygen Delivery Room Air 03/29/23 19:40 Medical Decision Making MDM Narrative Medical decision making narrative: acute periumbilical abd pain DDx hernia, obstruction, enteritis, colitis, aneurysm Vital Signs Vital Signs: Vital Signs Temperature 36.7 C 03/29/23 18:35 Pulse Rate 98 03/29/23 18:35 Respiratory Rate 14 03/29/23 18:35 Blood Pressure 149/97 H 03/29/23 18:35 Pulse Oximetry 98 03/29/23 18:35 Oxygen Delivery Room Air 03/29/23 18:35 Temperature 36.7 C 03/29/23 18:35 Pulse Rate 90 03/29/23 19:40 Respiratory Rate 20 03/29/23 19:40 Blood Pressure 158/90 H 03/29/23
[2023-03-29 18:59] LABS: Basophils Absolute Auto 0.03 K/mm3 (0.00-0.10); Basophils Percent Auto 0.3 % (0.0-1.0); Eosinophils Absolute Auto 0.07 K/mm3 (0.02-0.50); Eosinophils Percent Auto 0.7 % (1.0-6.0); Hematocrit 45.8 % (37.0-46.0); Hemoglobin 15.4 g/dL (12.4-15.3); Immature Granulocyte Absolute 0.07 K/mm3 (0.00-0.00); Immature Granulocyte Percent A 0.7 % (0.0-0.0); Lymphocytes Absolute Auto 1.53 K/mm3 (1.10-4.50); Lymphocytes Percent Auto 14.4 % (18.0-42.0); Mean Corpuscular HGB Conc 33.6 g/dL (32.0-36.0); Mean Corpuscular Hemoglobin 31.8 pg (27.0-31.0); Mean Corpuscular Volume 94.6 fL (78.0-102.0); Mean Platelet Volume 9.5 fl (8.7-11.0); Monocytes Absolute Auto 1.12 K/mm3 (0.10-0.90); Monocytes Percent Auto 10.5 % (2.0-11.0); Neutrophils Absolute Auto 7.8 K/mm3 (1.7-7.2); Neutrophils Percent Auto 73.4 % (50.0-70.0); Platelet Count Result 254 K/mm3 (150-420); Red Blood Count 4.84 M/mm3 (4.70-6.10); Red Cell Distribution Width 12.4 % (11.6-14.4); White Blood Count 10.7 K/mm3 (4.8-10.8)
[2023-03-29] MEDS: KETOROLAC 30 MG/ML VIAL (*BKC) IV PUSH (19:09)
[2023-03-29] MEDS: FAMOTIDINE 20 MG/2 ML VIAL 40 MG IV PUSH (19:09)
[2023-03-29] MEDS: diphenhydrAMINE HCl INJ 50 MG/ML VIAL 25 MG IV PUSH (19:09)
[2023-03-29 19:14] LABS: Alanine Aminotransferase 23 U/L (16-63); Albumin Level 3.5 g/dL (3.4-5.0); Alkaline Phosphatase 94 U/L (46-116); Anion Gap 10 mmol/L (8-16); Aspartate Amino Transferase 11 U/L (15-37); Bilirubin,Total 0.7 mg/dL (0.00-1.00); Blood Urea Nitrogen 25 mg/dL (7-18); Calcium 8.9 mg/dL (8.5-10.1); Carbon Dioxide 26 mmol/L (21-32); Chloride 101 mmol/L (98-108); Estimated CRCL calculation 59 ml/min; Estimated Glomerular Filt Rate > 60; Glucose 219 mg/dL (70-99); Osmolality Calculated 295 mOsm/kg (285-295); Potassium 4.6 mmol/L (3.5-5.1); Sodium 137 mmol/L (136-145); Total Protein 7.3 g/dL (6.4-8.2)
[2023-03-29 19:15] VITALS: BP 150/89; PULSE 88; RESP 20; O2SAT 98
[2023-03-29 19:17] LABS: Lactic Acid Reflex 2.2 mmol/L (0.4-2.0)
[2023-03-29 19:21] LABS: Lipase 66 U/L (16-77); Magnesium 1.7 mg/dL (1.8-2.4)
[2023-03-29 19:40] VITALS: BP 158/90; PULSE 90; RESP 20; O2SAT 96
[2023-03-29 20:33] LABS: Add Urine Microscopic? YES; Appearance Urine Clear (Clear); Bilirubin Urine Negative (Negative); Blood Urine Trace-Intact (Negative); Color Urine Yellow (Yellow); Glucose Urine UA Negative (Negative); Ketones Urine Negative (Negative); Leukocyte Esterase Ur Negative LEU/UL (Negative); Nitrate Urine Negative (Negative); Protein Urine 1+ (Negative); RBC Urine 0-2 /hpf (0-2); Specific Grav Ur 1.025 (1.010-1.020); Urobilinogen Urine 0.2 mg/dL (0.2-1.0); WBC Urine None seen /hpf (0-3); pH Urine 5.5 (5.0-8.0)
[2023-03-29 20:34] LABS: Bacteria Urine Trace /hpf; Squamous Epithelial Cell Urine Rare /hpf (Few)
[2023-03-29] MEDS: METOCLOPRAMIDE HCL INJ 10 MG/2 ML VIAL IV PUSH (20:38)
[2023-03-29 20:58] VITALS: BP 140/89; PULSE 89; RESP 18; TEMP 37.2; O2SAT 98
[2023-03-29 21:49] LABS: Reflex Lactic Acid Yes or No No Lactic Reflex
== END 2023-03-29 20:59 | disposition home or self-care (01) ==
PROVIDERS: Emergency Provider Emergency Medicine; PCP Family Medicine
DX: A09 Infectious gastroenteritis and colitis, unspecified (principal); I10 Essential (primary) hypertension; F17.210 Nicotine dependence, cigarettes, uncomplicated
CPT/HCPCS: 36415; 74177; 80053; 81001; 83605; 83690; 83735; 85025; 96361; 96374; 96375; 99284; J1200; J1885; J2765; J7030; Q9967

== ENCOUNTER 2024-02-19 12:16 | Emergency (ER) | payer MEDICARE, SELFPAY ==
[2024-02-19] VITALS (20 sets, daily range): BP systolic 102–140; BP diastolic 79–97; PULSE 65–84; RESP 11–23; TEMP 36.3; O2SAT 98–100
--- NOTE | ~2024-02-19 | CT_ITS ---
EXAMINATION: CT brain wo con DATE: 02/19/2024 13:08 INDICATION: Altered mental status. TECHNIQUE: Computed tomography (CT) of the head was performed without intravenous contrast. The mA wa s adjusted according to patient size. Iterative reconstruction technique was employed. The dose-lengt h product was 605.33 mGy-cm. COMPARISON: None FINDINGS: There is no intracranial hemorrhage, acute infarction, or abnormal intracranial mass lesion . There are scattered areas of low attenuation in the cerebral white matter. The ventricles are ruma l in size. There is mild mucosal thickening in the paranasal sinuses. The mastoid air cells are ruma l. The orbits are normal. IMPRESSION: 1. Mild nonspecific cerebral white matter disease, which likely represents chronic small vessel ische arron disease. Reviewed, dictated and finalized at location A. IMPRESSION: 1. 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
--- NOTE | ~2024-02-19 | CT_ITS ---
EXAMINATION: CT facial & cervical spine wo DATE: 02/19/2024 13:08 INDICATION: Head injury. TECHNIQUE: Computed tomography (CT) of the maxillofacial region and cervical spine was performed with out intravenous contrast. Automated exposure control and iterative reconstruction technique were empl oyed. The dose-length product was 388.45 mGy-cm. COMPARISON: None FINDINGS: MAXILLOFACIAL CT: The orbits are normal. There is rightward deviation of the nasal septum. There is mild mucosal thicke yadiel in the paranasal sinuses. CERVICAL SPINE CT: There is 6 degrees levocurvature of cervical spine. Vertebral body heights are normal. There is mildl y decreased disc height at C4-C5, C5-C6, and C6-C7. The following disc levels are specifically discus sed: C2-C3: There is mild bilateral uncovertebral joint osteoarthritis. There is severe bilateral facet suni int osteoarthritis. There is mild bilateral neural foraminal stenosis. There is mild central canal st enosis. C3-C4: There is mild bilateral uncovertebral joint osteoarthritis. There is moderate right and severe left facet joint osteoarthritis. There is mild bilateral neural foraminal stenosis. There is mild ce ntral canal stenosis. C4-C5: There is mild left uncovertebral joint osteoarthritis. There is severe bilateral facet joint o steoarthritis. There is mild bilateral neural foraminal stenosis. There is mild central canal stenosi s. C5-C6: There is mild bilateral uncovertebral joint osteoarthritis. There is moderate bilateral facet joint osteoarthritis. There is mild left neural foraminal stenosis. There is mild central canal steno sis. C6-C7: There is severe right and mild left uncovertebral joint osteoarthritis. There is mild bilatera l facet joint osteoarthritis. There is mild right neural foraminal stenosis. There is mild central ca nal stenosis. C7-T1: There is no uncovertebral joint osteoarthritis. There is mild bilateral facet joint osteoarthr itis. There is no neural foraminal stenosis. There is no central canal stenosis. IMPRESSION: 1. No fracture. Reviewed, dictated and finalized at location A. IMPRESSION: 1. No fracture.
--- NOTE | ~2024-02-19 | XR_ITS ---
EXAMINATION: XR chest 1V portable DATE: 02/19/2024 13:08 INDICATION: Shortness of breath. TECHNIQUE: A single frontal view of the chest was obtained. COMPARISON: Chest 2 views 11/14/2022 FINDINGS: There is no pneumonia, pleural effusion, or pneumothorax. The heart size is normal. IMPRESSION: 1. No acute cardiopulmonary disease. Reviewed, dictated and finalized at location A.
[2024-02-19 12:23] LABS: Glucose Point of Care > 450 mg/dl (65-105)
--- NOTE | 2024-02-19 12:25 | ECG_ITS ---
Test Date: 2024-02-19 12:36:59 Measurements Intervals [place] Rate: 78 P: 43 TX: 160 QRS: 64 QRSD: 81 T: 77 QT: 362 QTc: 413 Interpretive Statements SINUS RHYTHM BASELINE ARTIFACT- I, II, III, AVR, AVL, AVF, V1-V6 NORMAL ECG No previous ECG available for comparison Electronically Signed On 02-19-2024 12:54:58 CDT by Tate Romero D.O.
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
[2024-02-19] MEDS: SODIUM CHLORIDE 0.9% IV 1,000 ML 999 ML IV CONT ×3 (12:34→15:05)
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
[2024-02-19 12:52] LABS: Basophils Absolute Auto 0.02 K/mm3 (0.00-0.10); Basophils Percent Auto 0.3 % (0.0-1.0); Eosinophils Absolute Auto 0.06 K/mm3 (0.02-0.50); Eosinophils Percent Auto 0.8 % (1.0-6.0); Hematocrit 38.3 % (37.0-46.0); Hemoglobin 13.4 g/dL (12.4-15.3); Immature Granulocyte Absolute 0.07 K/mm3 (0.00-0.00); Immature Granulocyte Percent A 0.9 % (0.0-0.0); Lymphocytes Absolute Auto 1.95 K/mm3 (1.10-4.50); Lymphocytes Percent Auto 25.5 % (18.0-42.0); Mean Corpuscular Hemoglobin 31.9 pg (27.0-31.0); Mean Corpuscular Volume 91.2 fL (78.0-102.0); Mean Platelet Volume 10.1 fl (8.7-11.0); Monocytes Absolute Auto 0.55 K/mm3 (0.10-0.90); Monocytes Percent Auto 7.2 % (2.0-11.0); Neutrophils Percent Auto 65.3 % (50.0-70.0); Platelet Count Result 207 K/mm3 (150-420); Red Cell Distribution Width 12.1 % (11.6-14.4); White Blood Count 7.7 K/mm3 (4.8-10.8)
[2024-02-19 13:05] LABS: INR 0.9; Prothrombin Time 10.1 Seconds (9.50-12.1)
[2024-02-19 13:09] LABS: Lactic Acid Reflex 2.6 mmol/L (0.4-2.0)
[2024-02-19 13:13] LABS: Alanine Aminotransferase 28 U/L (16-63); Albumin Level 3.3 g/dL (3.4-5.0); Alkaline Phosphatase 128 U/L (46-116); Anion Gap 9 mmol/L (4-12); Aspartate Amino Transferase 13 U/L (15-37); Bilirubin,Total 0.4 mg/dL (0.00-1.00); Blood Urea Nitrogen 10 mg/dL (7-18); Calcium 8.7 mg/dL (8.5-10.1); Carbon Dioxide 27 mmol/L (21-32); Chloride 95 mmol/L (98-108); Estimated CRCL calculation 57 ml/min; Estimated Glomerular Filt Rate 60; NT Pro B Type Natriuretic Pept 26 pg/mL (0-125); Potassium 4.1 mmol/L (3.5-5.1); Sodium 131 mmol/L (136-145); Total Protein 6.8 g/dL (6.4-8.2)
[2024-02-19 13:14] LABS: Glucose 557 mg/dL (70-99); Osmolality Calculated 296 mOsm/kg (285-295)
[2024-02-19 13:15] LABS: Lipase 48 U/L (16-77); Troponin I 6.1 ng/L (0.00-60.4)
--- NOTE | 2024-02-19 13:50 | PC.NURSE ---
Addendum entered by Malu Box RN 02/19/24 18:32: No change in neuro status at this time. Pt remains alert to voice. Arouses to voice. Original Note: Pt's daughter at bedside.
[2024-02-19] MEDS: INSULIN HUMAN REGULAR (*BKC) 1,000 UNITS/10 ML VIAL 10 UNITS IV PUSH (13:53)
[2024-02-19 13:54] LABS: SARS-CoV-2 RNA PCR Negative (Negative)
[2024-02-19] MEDS: PIPERACILLN/TAZ 3.375GM/NS50ML 3.375 GM/50 ML BAG IVPB (13:54)
[2024-02-19 13:55] LABS: Influenza A QL RT-PCR Negative (Negative); Influenza B QL RT-PCR Negative (Negative); RSV RNA, RT-PCR Negative (Negative)
[2024-02-19 13:55] LABS: Glucose Point of Care > 450 mg/dl (65-105)
[2024-02-19] MEDS: TETANUS,DIPHTHERIA,AC PERTUSSIS ADULT 0.5 ML (ADACEL) IM (13:55)
[2024-02-19 13:56] LABS: Add Urine Microscopic? NO; Appearance Urine Clear (Clear); Bilirubin Urine Negative (Negative); Blood Urine Negative (Negative); Color Urine Yellow (Yellow); Glucose Urine UA 4+ (Negative); Ketones Urine Negative (Negative); Leukocyte Esterase Ur Negative LEU/UL (Negative); Nitrate Urine Negative (Negative); Protein Urine Negative (Negative); Specific Grav Ur 1.015 (1.010-1.020); Urobilinogen Urine Negative mg/dL (0.2-1.0)
[2024-02-19 13:59] LABS: Amphetamine Screen Urine Positive (Negative); Barbiturate Screen Urine Negative (Negative); Benzodiazepines Screen Urine Negative (Negative); Cannabinoid Screen Urine Negative (Negative); Cocaine Screen Urine Negative (Negative); Methadone Screen Urine Negative (Negative); Opiate Screen Urine Negative (Negative); Phencyclidine Screen Urine Negative (Negative)
[2024-02-19] MEDS: VANCOMYCIN 1,500 MG/NS 500 ML BAG 250 MG IVPB (14:32)
--- NOTE | 2024-02-19 14:50 | PC.NURSE ---
Addendum entered by Malu Box RN 02/19/24 18:33: Pt more alert and talking with family but remains drowsy, alert to verbal Original Note: Pt resting comfortably in stretcher. Family at bedside.
[2024-02-19 15:22] LABS: Glucose Point of Care 306 mg/dl (65-105)
[2024-02-19] MEDS: INSULIN HUMAN REGULAR (*BKC) 1,000 UNITS/10 ML VIAL 5 UNITS SUB-Q (15:29)
[2024-02-19 15:49] LABS: Reflex Lactic Acid Yes or No Add Lactic
--- NOTE | 2024-02-19 15:55 | PC.NURSE ---
FAMILY AT BEDSIDE. PT IS AWAITING RETURN CALL FROM [place] AT THIS TIME. HOSPITALIST AT [facility] DECLINED ADMISSION AT THIS TIME. PT IS MORE ALERT, REQUESTING SOMETHING TO EAT AND TALKING WITH FAMILY. IV MEDICATIONS ARE INFUSING ORDERED. WILL CONTINUE TO MONITOR.
--- NOTE | 2024-02-19 16:28 | PC.NURSE ---
Pt more alert and asking for food. Dr. Valdes wants him to wait until tomorrow to eat due to aspiration concerns.
--- NOTE | 2024-02-19 17:21 | PC.NURSE ---
WEAPONS DESIGNER FEDERICO AT [facility] CALLS WITH BED ASSIGNMENT OF 324-1, NUMBER FOR REPORT [phone].
[2024-02-19 18:29] LABS: Glucose Point of Care 282 mg/dl (65-105)
[2024-02-19 18:43] LABS: Glucose Point of Care 226 mg/dl (65-105)
[2024-02-19 20:07] LABS: Glucose Point of Care 235 mg/dl (65-105)
--- NOTE | 2024-02-26 12:34 | PC.NURSE ---
FINAL BLOOD CULTURES NO GROWTH AFTER 5 DAYS
== END 2024-02-19 18:46 | disposition short-term general hospital (02) ==
PROVIDERS: Emergency Provider Internal Medicine Critical Care Medicine; PCP Family Medicine
DX: E11.9 Type 2 diabetes mellitus without complications (principal); L03.211 Cellulitis of face; F15.10 Other stimulant abuse, uncomplicated; J44.9 Chronic obstructive pulmonary disease, unspecified; K86.1 Other chronic pancreatitis; I10 Essential (primary) hypertension; F32.9 Major depressive disorder, single episode, unspecified; F17.210 Nicotine dependence, cigarettes, uncomplicated; Z23 Encounter for immunization; Z20.822 Contact with and (suspected) exposure to COVID-19; W50.0XXA Accidental hit or strike by another person, initial encounter
CPT/HCPCS: 36415; 70450; 70486; 71045; 72125; 80053; 80307; 81003; 82948; 83605; 83690; 83880; 84484; 85025; 85610; 87040; 87637; 90471; 90715; 93005; 96361; 96365; 96366; 96367; 96375; 99285; J1815; J2543; J3370; J7030

== ENCOUNTER 2024-02-19 20:31 | Inpatient (IN) | payer MEDICARE, MEDICAID, SELFPAY ==
--- NOTE | ~2024-02-19 | NM_ITS ---
EXAMINATION: NM vasiliy stress w perfusion DATE: 02/24/2024 12:47 INDICATION: Chest pain TECHNIQUE: Rest images were obtained following intravenous administration of 9.4 mCi Tc99m tetrofosmi n (Myoview). The patient was infused intravenously with Lexiscan (Regadenoson). Then, 30.0 mCi Tc99m tetrofosmin (Myoview) was administered intravenously, and stress images were obtained. Data was recon structed into short axis and horizontal and vertical long axis SPECT images. Gated SPECT images were also obtained. COMPARISON: None. FINDINGS: There is no definite reversible or fixed perfusion abnormality to suggest ischemia or infar ction. There is normal left ventricular chamber size, wall motion and ejection fraction. Left ventr icular ejection fraction measures 65%. IMPRESSION: 1. Normal myocardial perfusion at rest and during stress. 2. Left ventricular ejection fraction measuring 65%. Reviewed, dictated and finalized at location B.
--- NOTE | ~2024-02-19 | XR_ITS ---
EXAMINATION: XR chest 1V portable DATE: 02/21/2024 11:23 INDICATION: Chest pain. TECHNIQUE: A single frontal view of the chest was obtained. COMPARISON: Chest single view 02/19/2024, CT cervical spine 02/19/2024 FINDINGS: The lung apices are excluded. A skinfold overlies right hemithorax. No pneumonia, pleural e ffusion, or pneumothorax. The heart size is normal. IMPRESSION: 1. No acute cardiopulmonary disease. Reviewed, dictated and finalized at location A.
[2024-02-19 19:58] VITALS: BMI 23.8
--- NOTE | 2024-02-19 20:29 | PM.IMHP ---
H&P: HPI History of Present Illness Date/Time: 02/19/24 20:29 Chief Complaint: neck cellulitis Narrative: This is a 68-year-old male that presents as a direct admit from outside facility due to altered mental status, patient uses methamphetamine, denies IV drug use, tobacco dependence, at outside facility was noted the patient had cellulitis of the neck. At the time of my visit patient is obtunded easily arousable able to answer questions appropriately however poor historian not contributing in a meaningful way to history taking. Review of Systems Review of Systems: patient denied any recent drug use states that last time he did methamphetamine was 2 days prior and that he usually smokes methamphetamine denies use of intravenous drugs ROS unobtainable: Yes unobtainable due to mental status ( Lethargy/obtundation /intoxication?) [facility] Past Medical History Medical History Adjustment disorder Chronic pancreatitis Depression Exercise intolerance Fatty liver Hypertension Nicotine dependence Umbilical hernia Surgical History Surgical History History of back surgery 3 surgeries. Ruptured discs. 1989'. History of left knee surgery 1979' Family History Family History Father , Age 87 Hypertension Diabetes mellitus CAD (coronary artery disease) Mother , Age 74 Aortic aneurysm Social History Social History Smoking packs per day: 0.3 Smoking cigarettes per day: 6.0 Years smoked: 55 Smoking pack-years: 16.50 Smoking status: Current every day smoker Tobacco type: cigarettes Alcohol intake: current Drinks per week: 1 Substance use: current Substance use type: methamphetamine Do You Feel Safe in your Home?: Yes Lack of Transportation: No Lack of Food: Sometimes True Current Housing: I Have Housing Concerned About Future Housing: YES Difficulty Paying Gas/Electric Bills: YES Difficulty Paying for Meds: YES Currently Unemployed: No Education: High School Diploma/GED Difficulty w/ Childcare or Family Care: No Living arrangements: alone Gender identity (if verbalized by the patient): Male Spiritual care concerns: No Meds Home Medications and Allergies Home Medications Medication Instructions Recorded Confirmed Type metoprolol tartrate 25 mg tablet See Rx Instructions .Route 10/07/23 02/19/24 Rx .COMPLEX #60 tabs Allergies Allergy/AdvReac Type Severity Reaction Status Date / Time No Known Allergies Allergy Verified 02/19/24 20:14 Vital Signs Vital Signs - 24 hr 02/19/24 20:11 Oxygen Delivery Room Air Exam Narrative: patient is laying in bed Const: General: cooperative, comfortable, no acute distress, well developed, alert, awake, lethargic, average body habitus, thin and other ( looks older than stated age) Nutritional Appearance: average body habitus Orientation/consciousness: patient oriented x3 Other: patient is left artery, stunted however after calling his name he was able to answer questions and open his eyes HENMT: Head: normal to inspection, normocephalic and atraumatic Ears: hearing grossly normal bilaterally Face/Nose/Sinus: normal facial exam Face and sinus: normal facial exam Face images: 1. area of opening with surrounding redness and swelling Eyes: General: appearance normal, both eyes and all related structures Pupils: Equal, round and reactive pupils present EOM: EOMs intact bilaterally Neck: Neck: full ROM, no lymphadenopathy and no JVD Thyroid: thyroid normal Lymphatic: no lymphadenopathy noted Resp: Effort & Inspection: normal respiratory effort and able to speak in complete sentences Auscultation: clear to auscultation bilaterally
[2024-02-19 20:48] VITALS: BP 116/79; PULSE 74; RESP 16; TEMP 36.9; O2SAT 100
[2024-02-19 22:16] VITALS: PULSE 79
[2024-02-19] MEDS: METOPROLOL TARTRATE 25 MG TABLET BY MOUTH (22:16)
[2024-02-19 22:27] LABS: Basophils Percent Auto 0.5 % (0.2-1.2); Eosinophils Absolute Auto 0.1 K/mm3 (0-0.3); Eosinophils Percent Auto 1.2 % (0-4.4); Hemoglobin 12.9 g/dL (14.0-18.0); Immature Granulocyte Absolute 0.04 K/mm3 (0.00-0.031); Immature Granulocyte Percent A 0.5 % (0-0.5); Lymphocytes Absolute Auto 2.85 K/mm3 (0.9-3.2); Lymphocytes Percent Auto 33.2 % (18.3-44.2); Mean Corpuscular HGB Conc 34.9 g/dl (32-36); Mean Corpuscular Volume 91.8 fl (80-100); Mean Platelet Volume 9.6 fl (7.4-10.4); Monocytes Absolute Auto 0.6 K/mm3 (0.1-0.6); Monocytes Percent Auto 7.1 % (2.6-8.5); Neutrophils Absolute Auto 4.9 K/mm3 (1.3-6.7); Neutrophils Percent Auto 57.5 % (45.5-73.1); Platelet Count Result 189 k/mm3 (150-375); Red Blood Count 4.03 M/mm3 (4.6-6.20); Red Cell Distribution Width 12.3 % (11.5-14.5); White Blood Count 8.6 K/mm3 (4.5-10.0)
[2024-02-19 22:36] LABS: Anion Gap 7 mmol/L (4-12); Blood Urea Nitrogen 10 mg/dL (9-20); Calcium 8.5 mg/dL (8.4-10.2); Carbon Dioxide 24 mmol/L (22-30); Chloride 102 mmol/L (98-107); Estimated CRCL calculation 110 ml/min; Estimated Glomerular Filt Rate > 60; Glucose 224 mg/dL (65-110); Magnesium 1.7 mg/dL (1.6-2.3); Phosphorus 2.3 mg/dL (2.5-4.5); Potassium 3.5 mmol/L (3.4-5.0); Sodium 133 mmol/L (137-145)
[2024-02-19 22:40] LABS: Lactic Acid Reflex < 0.5 mmol/L (0.7-2.0)
[2024-02-19 22:43] LABS: Prothrombin Time 13.5 Seconds (11.1-14.7)
[2024-02-19 22:44] LABS: Partial Thromboplastin Time 24.9 Seconds (22.3-36.8)
[2024-02-19 22:48] LABS: Hemoglobin A1C > 14.0 % (<5.7)
--- NOTE | 2024-02-19 23:00 | ADMGEN ---
This patient, Getachew Méndez, was admitted to [facility] Surg Room 324-01. Patient/family oriented to hospital policies and general routines including ID bracelet, bed and alarms, visiting hours, pain management, procedures, bathroom and other care routines, personal items, smoking policy, room service/diet, and visiting hours. Information on how to activate the Rapid Response Team has been discussed. Patient/Family are encouraged to report perceived risks to care and to ask questions if they do not understand what they are told or what they should do.
[2024-02-20] MEDS: CEFEPIME 1 GM/NS 50 ML 1 GM/50 ML BAG IVPB ×3 (02:12→19:02)
[2024-02-20] MEDS: VANCOMYCIN 1,500 MG/NS 500 ML 1,500 MG/500 ML BAG 250 MG IVPB ×2 (03:45→15:29)
[2024-02-20 05:30] VITALS: BP 114/72; PULSE 72; RESP 16; TEMP 36.8; O2SAT 100
[2024-02-20 07:37] LABS: Glucose Point of Care 244 mg/dl (65-105)
[2024-02-20 08:20] VITALS: PULSE 72
[2024-02-20] MEDS: INSULIN GLARGINE (*BKC) 100 UNITS/ML SUB-Q (08:20)
[2024-02-20] MEDS: METOPROLOL TARTRATE 25 MG TABLET BY MOUTH ×2 (08:20→21:12)
[2024-02-20] MEDS: INSULIN ASPART (*BKC) 100 UNITS/ML SUB-Q ×6 (08:20→16:47)
[2024-02-20] MEDS: ENOXAPARIN 40 MG/0.4 ML SYRINGE SUB-Q (08:25)
[2024-02-20 09:06] LABS: HIV 1/2 Ab P24 Ag Result Negative (Negative)
[2024-02-20 09:29] LABS: Basophils Percent Auto 0.3 % (0.2-1.2); Eosinophils Absolute Auto 0.1 K/mm3 (0-0.3); Hematocrit 38.9 % (42.0-52.0); Hemoglobin 13.3 g/dL (14.0-18.0); Immature Granulocyte Absolute 0.05 K/mm3 (0.00-0.031); Immature Granulocyte Percent A 0.6 % (0-0.5); Lymphocytes Absolute Auto 2.26 K/mm3 (0.9-3.2); Lymphocytes Percent Auto 25.8 % (18.3-44.2); Mean Corpuscular HGB Conc 34.2 g/dl (32-36); Mean Corpuscular Volume 93.5 fl (80-100); Monocytes Absolute Auto 0.5 K/mm3 (0.1-0.6); Neutrophils Absolute Auto 5.8 K/mm3 (1.3-6.7); Neutrophils Percent Auto 66.3 % (45.5-73.1); Platelet Count Result 195 k/mm3 (150-375); Red Blood Count 4.16 M/mm3 (4.6-6.20); Red Cell Distribution Width 12.2 % (11.5-14.5); White Blood Count 8.8 K/mm3 (4.5-10.0)
[2024-02-20 09:42] LABS: Alanine Aminotransferase 22 U/L (6-50); Albumin Level 3.4 g/dL (3.5-5.1); Alkaline Phosphatase 98 U/L (38-126); Anion Gap 8 mmol/L (4-12); Aspartate Amino Transferase 29 U/L (17-59); Bilirubin,Total 0.5 mg/dL (0.2-1.3); Blood Urea Nitrogen 9 mg/dL (9-20); Calcium 8.6 mg/dL (8.4-10.2); Carbon Dioxide 27 mmol/L (22-30); Chloride 98 mmol/L (98-107); Estimated CRCL calculation 110 ml/min; Estimated Glomerular Filt Rate > 60; Glucose 247 mg/dL (65-110); Magnesium 1.6 mg/dL (1.6-2.3); Phosphorus 2.2 mg/dL (2.5-4.5); Potassium 3.7 mmol/L (3.4-5.0); Sodium 133 mmol/L (137-145)
[2024-02-20 10:23] LABS: Hepatitis B Surface Antigen Negative (Negative)
[2024-02-20 10:28] LABS: HAV RESULT Negative (Negative); Hepatitis B Core IgM Result Negative (Negative)
[2024-02-20 10:40] LABS: Hepatitis C Virus Antibody Negative (Negative)
[2024-02-20 11:10] VITALS: BMI 23.8
[2024-02-20 13:45] VITALS: BP 107/70; PULSE 72; RESP 20; TEMP 36.8; O2SAT 100
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
[2024-02-20] MEDS: POTASSIUM/PHOSPHORUS/SODIUM 1.5 GM PACKET 1 PACKET PO (15:25)
[2024-02-20 16:36] LABS: Glucose Point of Care 317 mg/dl (65-105)
[2024-02-20 19:30] VITALS: BP 130/90; PULSE 67; RESP 20; TEMP 37.6; O2SAT 100
[2024-02-20] MEDS: MAGNESIUM SULF 2 GM/WATER 50ML 2 GM/50 ML BAG IVPB (19:57)
[2024-02-20 20:10] LABS: Glucose Point of Care 291 mg/dl (65-105)
[2024-02-20 21:12] VITALS: PULSE 67
[2024-02-20] MEDS: INSULIN GLARGINE (*BKC) 100 UNITS/ML 14 UNITS SUB-Q (21:13)
[2024-02-21] VITALS (12 sets, daily range): BP systolic 95–130; BP diastolic 65–78; PULSE 52–70; RESP 16–22; TEMP 36.1–37.2; O2SAT 99–100; BMI 23.8
--- NOTE | 2024-02-21 | ECHO_ITS ---
Patient Info Name: Getachew Méndez Age: 68 years : 1955 Gender: Male Ht: 72 in Wt: 175 lbs BSA: 2.01 m2 HR: 54 bpm BP: 118 / 77 mmHg Heart Rhythm: Sinus Rhythm Technical Quality: Good Exam Date: 02/21/2024 2:57 PM Exam Location: Echo Lab Patient Status: Inpatient Admit Date: 02/19/2024 Staff Ordering Physician: Edmund Zhao MD Market Research Senior Project Manager: Jcarlos Ruiz RDCS Attending Provider: Edmund Zhao MD Exam Type: CA echo doppler color flow Study Info Indications - chest pain Complete two-dimensional, color flow and Doppler transthoracic echocardiogram is performed. Summary 1. Complete two-dimensional, color flow and Doppler transthoracic echocardiogram is performed. 2. Left ventricular chamber dimension is normal. 3. Left ventricular systolic function is normal, estimated at 60-65%. 4. The left ventricular diastolic function is normal. 5. E/e' 7 is not elevated. 6. There is mild aortic valve sclerosis. 7. There is mild to moderate aortic valve regurgitation. 8. There is trace tricuspid valve regurgitation. 9. No pulmonary hypertension, estimated pulmonary arterial systolic pressure is 15 mmHg. 10. There is trace pulmonic regurgitation. Left Ventricle E/e' 7 is not elevated. Left ventricular chamber dimension is normal. Left ventricular systolic function is normal, estimated at 60-65%. The left ventricular diastolic function is normal. Right Ventricle Right ventricular systolic function is normal and with normal TAPSE 2.3 cm. Right ventricular chamber dimension is normal. Left Atria Left atrial chamber dimension is normal. Right Atria Right atrial chamber dimension is normal. Aortic Valve The aortic valve is trileaflet. There is mild aortic valve sclerosis. There is no aortic valve stenosis. There is mild to moderate aortic valve regurgitation. Pulmonic Valve There is trace pulmonic regurgitation. Mitral Valve There is no mitral valve stenosis. There is no mitral valve regurgitation. Tricuspid Valve There is trace tricuspid valve regurgitation. No pulmonary hypertension, estimated pulmonary arterial systolic pressure is 15 mmHg. Pericardium/Pleural There is no pericardial effusion. Inferior Vena Cava Normal inferior vena cava with >50% collapse upon inspiration consistent with normal right atrial pressure, 5 mmHg. Aorta The aortic root size at the sinus of Valsalva is normal. Left Ventricular Outflow Tract Name Value Normal LVOT 2D LVOT Diameter 2.1 cm LVOT Doppler LVOT Peak Gradient 3 mmHg LVOT Mean Gradient 2 mmHg LVOT VTI 21 cm LVOT VTI/AV VTI Ratio 1.1 LVOT Stroke Volume 73 ml LVOT CO 3.9 l/min LVOT CI 1.9 l/min/m2 Pulmonic Valve Name Value Normal PV Regurgitation Doppler VT Peak End
[2024-02-21] MEDS: ACETAMINOPHEN 500 MG TABLET 1000 MG PO ×3 (01:34→21:17)
[2024-02-21] MEDS: CEFEPIME 1 GM/NS 50 ML 1 GM/50 ML BAG IVPB ×3 (01:34→18:51)
[2024-02-21] MEDS: VANCOMYCIN 1,500 MG/NS 500 ML 1,500 MG/500 ML BAG 250 MG IVPB ×2 (03:05→15:38)
[2024-02-21 07:01] LABS: Albumin Level 3.4 g/dL (3.5-5.1); Anion Gap 8 mmol/L (4-12); Blood Urea Nitrogen 13 mg/dL (9-20); Calcium 8.5 mg/dL (8.4-10.2); Carbon Dioxide 26 mmol/L (22-30); Chloride 101 mmol/L (98-107); Estimated CRCL calculation 96 ml/min; Estimated Glomerular Filt Rate > 60; Glucose 220 mg/dL (65-110); Lipase 68 U/L (23-300); Phosphorus 2.6 mg/dL (2.5-4.5); Sodium 135 mmol/L (137-145)
[2024-02-21 08:24] LABS: Glucose Point of Care 248 mg/dl (65-105)
[2024-02-21] MEDS: ENOXAPARIN 40 MG/0.4 ML SYRINGE SUB-Q (08:48)
[2024-02-21] MEDS: INSULIN ASPART (*BKC) 100 UNITS/ML SUB-Q ×2 (08:49→11:47)
[2024-02-21] MEDS: METOPROLOL TARTRATE 25 MG TABLET BY MOUTH ×2 (08:49→21:10)
[2024-02-21] MEDS: INSULIN ASPART (*BKC) 100 UNITS/ML 6 UNITS SUB-Q ×3 (08:49→16:53)
--- NOTE | 2024-02-21 10:48 | ECG_ITS ---
Test Date: 2024-02-21 11:10:00 Measurements Intervals [place] Rate: 61 P: 38 NC: 134 QRS: 50 QRSD: 85 T: 68 QT: 396 QTc: 402 Interpretive Statements SINUS RHYTHM NORMAL ECG Compared to ECG 02/19/2024 12:36:59 No significant changes Electronically Signed On 02-21-2024 11:25:44 CDT by aTte Romero D.O.
[2024-02-21] MEDS: ASPIRIN 81 MG CHEWABLE TABLET 324 MG PO (11:06)
[2024-02-21] MEDS: NITROGLYCERIN SL 0.4 MG TABLET SUBLINGUAL (11:06)
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
[2024-02-21 11:31] LABS: Troponin I < 0.012 ng/mL (0.000-0.034)
[2024-02-21 12:04] LABS: Cholesterol 145 mg/dL (0-200); HDL Direct 40 mg/dL; Triglycerides 141 mg/dL (<150)
[2024-02-21 12:15] LABS: LDL Cholesterol Direct 81 mg/dL
[2024-02-21 12:17] LABS: Glucose Point of Care 203 mg/dl (65-105)
--- NOTE | 2024-02-21 12:51 | ADMGEN ---
This patient, Getachew Méndez, was admitted to IMU Room 214. Patient/family oriented to hospital policies and general routines including ID bracelet, bed and alarms, visiting hours, pain management, procedures, bathroom and other care routines, personal items, smoking policy, room service/diet, and visiting hours. Information on how to activate the Rapid Response Team has been discussed. Patient/Family are encouraged to report perceived risks to care and to ask questions if they do not understand what they are told or what they should do.
[2024-02-21 14:56] LABS: Troponin I < 0.012 ng/mL (0.000-0.034)
[2024-02-21 14:57] LABS: Vancomycin Trough 10.1 ug/mL (10.0-20.0)
[2024-02-21 16:08] LABS: Glucose Point of Care 177 mg/dl (65-105)
[2024-02-21 18:58] LABS: Troponin I < 0.012 ng/mL (0.000-0.034)
[2024-02-21 20:27] LABS: Glucose Point of Care 233 mg/dl (65-105)
[2024-02-21] MEDS: INSULIN GLARGINE (*BKC) 100 UNITS/ML 18 UNITS SUB-Q (21:11)
[2024-02-22] VITALS (19 sets, daily range): BP systolic 103–146; BP diastolic 49–86; PULSE 44–79; RESP 14–20; TEMP 36.1–36.9; O2SAT 97–100
[2024-02-22] MEDS: CEFEPIME 1 GM/NS 50 ML 1 GM/50 ML BAG IVPB ×3 (01:54→17:05)
[2024-02-22] MEDS: VANCOMYCIN 1,500 MG/NS 500 ML 1,500 MG/500 ML BAG 250 MG IVPB ×2 (03:20→14:57)
[2024-02-22 04:53] LABS: Hemoglobin 12.9 g/dL (14.0-18.0); Mean Corpuscular HGB Conc 33.1 g/dl (32-36); Mean Corpuscular Hemoglobin 31.5 pg (26-34); Mean Corpuscular Volume 95.4 fl (80-100); Mean Platelet Volume 10.2 fl (7.4-10.4); Platelet Count Result 209 k/mm3 (150-375); Red Blood Count 4.09 M/mm3 (4.6-6.20); Red Cell Distribution Width 12.2 % (11.5-14.5); White Blood Count 7.5 K/mm3 (4.5-10.0)
[2024-02-22 05:05] LABS: Anion Gap 7 mmol/L (4-12); Blood Urea Nitrogen 14 mg/dL (9-20); Calcium 8.7 mg/dL (8.4-10.2); Carbon Dioxide 27 mmol/L (22-30); Chloride 100 mmol/L (98-107); Estimated CRCL calculation 96 ml/min; Estimated Glomerular Filt Rate > 60; Glucose 212 mg/dL (65-110); Potassium 3.6 mmol/L (3.4-5.0); Sodium 134 mmol/L (137-145)
[2024-02-22 07:59] LABS: Glucose Point of Care 182 mg/dl (65-105)
[2024-02-22] MEDS: ENOXAPARIN 40 MG/0.4 ML SYRINGE SUB-Q (08:39)
[2024-02-22] MEDS: INSULIN ASPART (*BKC) 100 UNITS/ML 7 UNITS SUB-Q ×3 (08:40→16:30)
[2024-02-22] MEDS: METOPROLOL TARTRATE 25 MG TABLET BY MOUTH (09:39)
[2024-02-22] MEDS: ASPIRIN 81 MG ENTERIC TABLET PO (09:39)
--- NOTE | 2024-02-22 11:04 | ECG_ITS ---
Test Date: 2024-02-22 11:12:27 Measurements Intervals [place] Rate: 54 P: 33 NE: 153 QRS: 42 QRSD: 88 T: 60 QT: 401 QTc: 381 Interpretive Statements SINUS BRADYCARDIA BORDERLINE ECG Compared to ECG 02/21/2024 11:10:00 HEART RATE HAS DECREASED Electronically Signed On 02-22-2024 15:58:11 CDT by Tate Romero D.O.
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
[2024-02-22 11:43] LABS: Troponin I < 0.012 ng/mL (0.000-0.034)
[2024-02-22 13:16] LABS: Glucose Point of Care 220 mg/dl (65-105)
[2024-02-22] MEDS: INSULIN ASPART (*BKC) 100 UNITS/ML SUB-Q ×2 (13:21→16:30)
[2024-02-22] MEDS: ACETAMINOPHEN 500 MG TABLET 1000 MG PO (14:53)
[2024-02-22 15:48] LABS: Glucose Point of Care 234 mg/dl (65-105)
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
--- NOTE | 2024-02-22 18:55 | PC.NURSE ---
This patient, Getachew Méndez, was received from [[id number] ] on 02/22/24 at 1850. Patient/family oriented to unit policies and routines
--- NOTE | 2024-02-22 19:20 | PC.NURSE ---
This patient, Getachew Méndez, was transferred to [ICU-5 ] on 02/22/24 at 1845. Personal belongings sent with patient. Report given to [SARAH Marin @ [phone] ]. Appropriate documentation sent with patient. Sally, daughter, aware of pt being transferred.
[2024-02-22] MEDS: INSULIN GLARGINE (*BKC) 100 UNITS/ML 21 UNITS SUB-Q (20:00)
[2024-02-22] MEDS: METOPROLOL TARTRATE 12.5 MG TABLET BY MOUTH (20:00)
[2024-02-22 20:06] LABS: Glucose Point of Care 143 mg/dl (65-105)
[2024-02-23] VITALS (16 sets, daily range): BP systolic 111–146; BP diastolic 74–87; PULSE 53–74; RESP 11–18; TEMP 36.5–36.9; O2SAT 97–100
[2024-02-23] MEDS: CEFEPIME 1 GM/NS 50 ML 1 GM/50 ML BAG IVPB ×2 (03:39→10:38)
[2024-02-23] MEDS: VANCOMYCIN 1,500 MG/NS 500 ML 1,500 MG/500 ML BAG 250 MG IVPB (03:45)
[2024-02-23 04:32] LABS: Estimated CRCL calculation 110 ml/min; Estimated Glomerular Filt Rate > 60
[2024-02-23 07:24] LABS: Glucose Point of Care 173 mg/dl (65-105)
[2024-02-23] MEDS: ATORVASTATIN 40 MG TABLET PO (08:28)
[2024-02-23] MEDS: METOPROLOL TARTRATE 12.5 MG TABLET BY MOUTH ×2 (08:28→20:11)
[2024-02-23] MEDS: ENOXAPARIN 40 MG/0.4 ML SYRINGE SUB-Q (08:28)
[2024-02-23] MEDS: INSULIN ASPART (*BKC) 100 UNITS/ML 7 UNITS SUB-Q ×3 (08:28→17:59)
[2024-02-23] MEDS: ASPIRIN 81 MG ENTERIC TABLET PO (08:28)
[2024-02-23] MEDS: ACETAMINOPHEN 500 MG TABLET 1000 MG PO (08:36)
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
[2024-02-23 11:39] LABS: Glucose Point of Care 264 mg/dl (65-105)
[2024-02-23] MEDS: INSULIN ASPART (*BKC) 100 UNITS/ML SUB-Q (11:42)
[2024-02-23 11:57] LABS: MRSA (PCR) NOT DETECTED (NOT DETECTE)
[2024-02-23 16:19] LABS: Glucose Point of Care 174 mg/dl (65-105)
[2024-02-23] MEDS: AMOXICILLIN/CLAVULANATE K 875-125 MG TAB 1 TABLET PO (20:11)
[2024-02-23] MEDS: INSULIN GLARGINE (*BKC) 100 UNITS/ML 21 UNITS SUB-Q (20:12)
[2024-02-23 20:18] LABS: Glucose Point of Care 261 mg/dl (65-105)
[2024-02-24] VITALS (9 sets, daily range): BP systolic 126–130; BP diastolic 69–86; PULSE 53–85; RESP 12–18; TEMP 36.7–36.9; O2SAT 97–99
--- NOTE | 2024-02-24 | EST_ITS ---
Patient Info Name: Getachew Méndez Age: 68 years : 1955 Gender: Male Ht: 72 in Wt: 17 lbs BSA: 0.57 m2 HR: 55 bpm BP: 107 / 74 mmHg Exam Date: 02/24/2024 11:49 AM Exam Location: Echo Lab Patient Status: Inpatient Admit Date: 02/19/2024 Staff Ordering Physician: Edmund Zhao MD Attending Provider: Edmund Zhao MD Exercise Technologist: Pratibha Zayas RDCS Exercise Physician: Tate Romero DO Exam Type: CA stress vasiliy w NM Study Info A regadenoson stress test was performed. Summary 1. 1. Negative lexiscan stress test for ischemic ST changes by ECG criteria. 2. 2. Stable hemodynamics throughout the test. 3. 3. Nuclear scan to follow and will be reported separately. Please correlate with it. 4. 4. Patient informed of the above results. Protocol: Lexiscan Stress ECG Details Stage: REST Duration (min): 0 min : 59 sec HR (bpm): 57 SBP (mmHg): 107 DBP (mmHg): 74 Stage: REST Duration (min): 7 min : 31 sec HR (bpm): 63 SBP (mmHg): 107 DBP (mmHg): 74 Stage: STAGE 1 Duration (min): 1 min : 0 sec HR (bpm): 79 SBP (mmHg): 98 DBP (mmHg): 70 Stage: RECOVERY Duration (min): 1 min : 0 sec HR (bpm): 88 SBP (mmHg): 98 DBP (mmHg): 70 Stage: RECOVERY Duration (min): 2 min : 0 sec HR (bpm): 82 SBP (mmHg): 88 DBP (mmHg): 67 Stage: RECOVERY Duration (min): 3 min : 0 sec HR (bpm): 86 SBP (mmHg): 84 DBP (mmHg): 67 Stage: RECOVERY Duration (min): 3 min : 5 sec HR (bpm): 83 SBP (mmHg): 84 DBP (mmHg): 67 Rest HR: 63 bpm Peak HR: 88 bpm Rest Sys BP: 107 mmHg Peak Sys BP: 98 mmHg Max Pred HR: 152 bpm % Max Pred HR: 58 % Target HR: 129 bpm Max RPP: 8,624 bpm*mmHg Termination Reason: Completed protocol Cardiac Symptoms: Shortness of breath Total Time: 1 min : 0 sec Rest Yeung BP: 74 mmHg Peak Yeung BP: 70 mmHg Total Dose: 0.4 mg Resting ECG Sinus rhythm. Stress ECG No ST changes. Arrhythmias None. Report Signatures
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
[2024-02-24 07:54] LABS: Glucose Point of Care 212 mg/dl (65-105)
[2024-02-24] MEDS: AMOXICILLIN/CLAVULANATE K 875-125 MG TAB 1 TABLET PO (08:48)
[2024-02-24] MEDS: ASPIRIN 81 MG ENTERIC TABLET PO (08:48)
[2024-02-24] MEDS: ACETAMINOPHEN 500 MG TABLET 1000 MG PO (08:48)
[2024-02-24] MEDS: ATORVASTATIN 40 MG TABLET PO (08:48)
[2024-02-24] MEDS: ENOXAPARIN 40 MG/0.4 ML SYRINGE SUB-Q (08:49)
[2024-02-24 13:34] LABS: Glucose Point of Care 160 mg/dl (65-105)
[2024-02-24] MEDS: INSULIN ASPART (*BKC) 100 UNITS/ML 7 UNITS SUB-Q (13:35)
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
[2024-02-24 15:30] LABS: Glucose Point of Care 269 mg/dl (65-105)
--- NOTE | 2024-03-02 12:37 | PCCDE ---
03/02/24 Courtesy follow up phone call placed to first number in chart = Primitivo Zavala. Message left including my direct line. GEORGI
== END 2024-02-24 16:17 | disposition home or self-care (01) | DRG 603 ==
LOC: ANH3MEDSUR 02-20 13:43 → ANHIMU 02-21 13:07 → ANHICU 02-22 18:54
PROVIDERS: Admitting Provider Internal Medicine; PCP Family Medicine; Visit Provider Internal Medicine
DX: L03.221 Cellulitis of neck (principal); K86.1 Other chronic pancreatitis; F15.20 Other stimulant dependence, uncomplicated; R45.851 Suicidal ideations; R07.9 Chest pain, unspecified; E11.9 Type 2 diabetes mellitus without complications; F17.210 Nicotine dependence, cigarettes, uncomplicated; F32.A Depression, unspecified; I10 Essential (primary) hypertension; K76.0 Fatty (change of) liver, not elsewhere classified; R41.82 Altered mental status, unspecified; Z28.21 Immunization not carried out because of patient refusal
CPT/HCPCS: 36415; 71045; 78452; 80048; 80053; 80061; 80069; 80074; 80202; 82565; 82948; 83036; 83605; 83690; 83735; 84100; 84484; 85025; 85027; 85610; 85730; 86703; 87641; 93005; 93017; 93306; A9270; A9502; G0432; J0692; J1650; J1815; J2785; J3370; J3475

== ENCOUNTER 2024-09-17 13:24 | Emergency (ER) | payer MEDICARE, MEDICAID, SELFPAY ==
--- NOTE | ~2024-09-17 | XR_ITS ---
XR chest 1V portable Ordering provider: Jasiel Merritt MD History: 69 years Male with . nausea vomiting,UPPER ABD PAIN . Comparison: February 21, 2024 FINDINGS: MEDIASTINUM: The cardiac silhouette is not enlarged. LUNGS: No infiltrates, effusions or pneumothorax. OTHER: No free air under the diaphragm. Degenerative changes of the spine. IMPRESSION: No acute cardiopulmonary pathology. Reviewed, dictated and finalized at location A.
--- NOTE | ~2024-09-17 | CT_ITS ---
CT abdomen pelvis w con Ordering provider: Jasiel Merritt MD History: 69 years Male with . abdominal pain . Comparison: March 29, 2023 Technique: CT abdomen and pelvis with IV and without oral contrast. Automated exposure control and it erative reconstruction technique were employed. The dose-length product was 560.34 mGy-cm. 100 mL Omn ipaque 350 was given IV. Findings: VISUALIZED LOWER CHEST: Dependent atelectatic changes. UPPER ABDOMINAL ORGANS: Liver: Fat infiltration. The Gallbladder: Normal. Spleen: Normal. Stomach/duodenum: Normal. Pancreas: Normal. Adrenals: Normal. Kidneys: Left kidney simple cyst measuring 2.5 cm. PELVIC ORGANS: The bladder is slightly underfilled with thickened wall. Evaluation for cystitis advis ed. BOWEL AND MESENTERY: Colon: No evidence of diverticulitis. Normal appendix. Small Bowel: Normal. No obstruction. Peritoneum/mesentery: No free air or free fluid. No mesenteric lymphadenopathy. RETROPERITONEUM: Mild atheromatous disease of the abdominal aorta. Moderate degenerative change narr owing at the origin of the celiac artery. No retroperitoneal lymphadenopathy. MUSCULOSKELETAL: Superficial soft tissues: Fat containing umbilical hernia. Otherwise, The superficial soft tissues ar e normal. Bones: Age appropriate degenerative changes of the spine. IMPRESSION: 1. No evidence of appendicitis, diverticulitis or intestinal obstruction. 2. Small fat-containing umbilical hernia. 3. Left renal cyst. Reviewed, dictated and finalized at location A.
[2024-09-17 13:24] VITALS: BP 98/77; PULSE 104; RESP 20; TEMP 35.9; O2SAT 97
[2024-09-17 14:05] LABS: Basophils Absolute Auto 0.04 K/mm3 (0.00-0.10); Basophils Percent Auto 0.3 % (0.0-1.0); Eosinophils Absolute Auto 0.06 K/mm3 (0.02-0.50); Eosinophils Percent Auto 0.5 % (1.0-6.0); Hematocrit 56.5 % (37.0-46.0); Hemoglobin 18.7 g/dL (12.4-15.3); Immature Granulocyte Absolute 0.06 K/mm3 (0.00-0.00); Immature Granulocyte Percent A 0.5 % (0.0-0.0); Lymphocytes Absolute Auto 0.96 K/mm3 (1.10-4.50); Lymphocytes Percent Auto 7.6 % (18.0-42.0); Mean Corpuscular HGB Conc 33.1 g/dL (32-36); Mean Corpuscular Hemoglobin 30.8 pg (27.0-31.0); Mean Corpuscular Volume 92.9 fL (78.0-102.0); Mean Platelet Volume 10.1 fl (8.7-11.0); Monocytes Percent Auto 6.4 % (2.0-11.0); Neutrophils Absolute Auto 10.65 K/mm3 (1.70-7.20); Neutrophils Percent Auto 84.7 % (50.0-70.0); Platelet Count Result 292 K/mm3 (150-420); Red Blood Count 6.08 M/mm3 (4.70-6.10); Red Cell Distribution Width 12.3 % (11.6-14.4); White Blood Count 12.6 K/mm3 (4.8-10.8)
[2024-09-17 14:26] LABS: Partial Thromboplastin Time 27.3 Sec (23.9-30.70); Prothrombin Time 10.9 Seconds (9.50-12.1)
[2024-09-17 14:27] LABS: Alanine Aminotransferase 26 U/L (16-63); Albumin Level 4.2 g/dL (3.4-5.0); Alkaline Phosphatase 132 U/L (46-116); Anion Gap 11 mmol/L (4-12); Aspartate Amino Transferase < 10 U/L (15-37); Bilirubin,Total 0.8 mg/dL (0.00-1.00); Blood Urea Nitrogen 31 mg/dL (7-18); Calcium 10.3 mg/dL (8.5-10.1); Carbon Dioxide 30 mmol/L (21-32); Chloride 95 mmol/L (98-108); Estimated Glomerular Filt Rate 35; Glucose 284 mg/dL (70-99); Lipase 52 U/L (16-77); Osmolality Calculated 298 mOsm/kg (285-295); Potassium 4.1 mmol/L (3.5-5.1); Sodium 136 mmol/L (136-145); Total Protein 8.9 g/dL (6.4-8.2); Troponin I 4.2 ng/L (0.00-60.4)
[2024-09-17] MEDS: KETOROLAC 30 MG/ML VIAL (*BKC) IV PUSH (14:29)
[2024-09-17] MEDS: ONDANSETRON INJ 4 MG/2 ML VIAL IV PUSH (14:29)
[2024-09-17] MEDS: SODIUM CHLORIDE 0.9% IV 1,000 ML 999 ML IV CONT ×2 (14:30→14:31)
[2024-09-17 14:46] LABS: Influenza A QL RT-PCR Negative (Negative); Influenza B QL RT-PCR Negative (Negative); RSV RNA, RT-PCR Negative (Negative); SARS-CoV-2 RNA PCR Negative (Negative)
[2024-09-17 14:53] VITALS: BP 133/71; PULSE 108; RESP 18; TEMP 37.1; O2SAT 97
[2024-09-17 14:54] VITALS: PULSE 100; RESP 16; O2SAT 97
[2024-09-17 15:00] VITALS: BP 142/85
[2024-09-17 15:02] VITALS: PULSE 87; RESP 16; O2SAT 95
[2024-09-17 15:06] LABS: Lactic Acid Reflex 2.2 mmol/L (0.4-2.0)
[2024-09-17 16:02] LABS: Reflex Lactic Acid Yes or No Add Lactic
--- NOTE | 2024-09-17 16:05 | ED.NAVMDI ---
HPI - Nausea/Vomiting/Diarrhea General Chief complaint: Nausea/Vomiting/Diarrhea Stated complaint: weakness, elevated blood sugar, fever Source: patient and EMS Mode of arrival: EMS Limitations: no limitations History of Present Illness HPI Narrative: this is a 69-year-old male with a history of diabetes presents with some nausea vomiting some abdominal pain with no fever chills no diarrhea constipation. Patient has no dysuria no flank pain no hematuria no chest pain or shortness of breath. MD elicited complaint: nausea, vomiting and abdominal pain Onset (ago): hour(s) Description of vomiting: watery Associated nausea: Yes Associated abdominal pain: Yes Location of pain: diffuse Related Data Allergies Allergy/AdvReac Type Severity Reaction Status Date / Time No Known Allergies Allergy Verified 09/15/24 14:43 Review of Systems Review of Systems: All systems reviewed & are unremarkable except as noted in HPI and below PMFSH Past Medical History Medical History Exercise intolerance Umbilical hernia Fatty liver Depression Nicotine dependence Adjustment disorder Hypertension Surgical History Surgical History History of back surgery 3 surgeries. Ruptured discs. . History of left knee surgery Family History Family History Father , Age 87 Hypertension Diabetes mellitus CAD (coronary artery disease) Mother , Age 74 Aortic aneurysm Social History Social History Smoking packs per day: 0.3 Smoking cigarettes per day: 6.0 Years smoked: 55 Smoking pack-years: 16.50 Smoking status: Current every day smoker Tobacco type: cigarettes Alcohol intake: current Drinks per week: 1 Substance use: current Substance use type: methamphetamine Do You Feel Safe in your Home?: Yes Lack of Transportation: No Lack of Food: Sometimes True Current Housing: I Have Housing Concerned About Future Housing: YES Difficulty Paying Gas/Electric Bills: YES Difficulty Paying for Meds: YES Currently Unemployed: No Education: High School Diploma/GED Difficulty w/ Childcare or Family Care: No Living arrangements: alone Gender identity (if verbalized by the patient): Male Spiritual care concerns: No Exam Const: General: cooperative, comfortable, no acute distress and well developed Nutritional Appearance: average body habitus and well nourished Orientation/consciousness: oriented to person, oriented to place and oriented to time HENMT: Head: normal to inspection Mouth: Yes Normal oral and palatal mucosa present and Yes moist mucous membranes abnormal Eyes: General: appearance normal, both eyes and all related structures Chest: Chest palpation & inspection: normal inspection of the chest and normal palpation of entire chest wall Resp: Effort & Inspection: normal respiratory effort and able to speak in complete sentences Auscultation: clear to auscultation bilaterally Cardio: Jugular venous distension: no JVD Palpation: normal PMI Rate: regular rate Rhythm: regular rhythm GI: Inspection: normal to inspection GI Palp: Yes abdominal tenderness : General: Yes bimanual renal exam normal bilaterally Course Course Emergency Course: Patient received IV fluids and Zofran and is doing much better tolerating something to drink currently. CT scan showed no acute abnormalities blood work reviewed with patient count was 12.3. The rest of his blood work was unremarkable. MDM - Nausea/Vomiting/Diarrhea Lab Data 09/17/24 13:58 09/17/24 13:58 Labs: Lab Results 09/17/24 Range/Units 13:58 WBC 12.6 H (4.8-10.8) K/mm3 RBC 6.08 (4.70-6.10) M/mm3 Hgb 18.7 H (12.4-15.3) g/dL Hct 56.5 H (37.0-46.0) % MCV 92.9 (78.0-102.0) fL MCH 30.8 (27.0-31.0) pg MCHC 33.1 (32-36) g/dL RDW 12.3 (11.6-14.4) % Plt Count 292 (150-420) K/mm3 MPV 10.1 (8.7-11.0) fl Immature Gran % (Auto) 0.5 H (0.0-0.0) % Neut % (Auto) 84.7 H (50.0-70.0) % Lymph % (Auto) 7.6 L (18.0-42.0) % [place] % (Auto) 6.4 (2.0-11.0) % Eos % (Auto) 0.5 L (1.0-6.0) % Baso % (Auto) 0.3 (0.0-1.0) % Lymph # (Auto) 0.96 L (1.10-4.50) K/mm3 [place] # (Auto) 0.80 (0.10-0.90) K/mm3 Eos # (Auto) 0.06 (0.02-0.50) K/mm3 Baso # (Auto) 0.04 (0.00-0.10) K/mm3 Abs Immat Gran (auto) 0.06 H (0.00-0.00) K/mm3 Absolute Neuts (auto) 10.65 H (1.70-7.20) K/mm3 Absolute Nucleated RBC 0.00 (0.00-0.00) K/mm3 Nucleated RBC % 0.0 (0-0.0) % PT 10.9 (9.50-12.1) Seconds INR 1.0 APTT 27.3 (23.9-30.70) Sec Sodium 136 (136-145) mmol/L Potassium 4.1 (3.5-5.1) mmol/L Chloride 95 L (98-108) mmol/L Carbon Dioxide 30 (21-32) mmol/L Anion Gap 11 (4-12) mmol/L BUN 31 H (7-18) mg/dL Creatinine 1.93 H (0.70-1.30) mg/dL Estim Creat Clear Calc Not Reportable Estimated GFR 35 L (59 - ) Glucose 284 H (70-99) mg/dL Calculated Osmolality 298 H (285-295) mOsm/kg Lactic Acid 2.2 H (0.4-2.0) mmol/L Calcium 10.3 H (8.5-10.1) mg/dL Total Bilirubin 0.8 (0.00-1.00) mg/dL AST < 10 L (15-37) U/L ALT 26 (16-63) U/L Alkaline Phosphatase 132 H (46-116) U/L Troponin I 4.2 (0.00-60.4) ng/L Total Protein 8.9 H (6.4-8.2) g/dL Albumin 4.2 (3.4-5.0) g/dL Lipase 52 (16-77) U/L Influenza A (RT-PCR) Negative (Negative) Influenza B (RT-PCR) Negative (Negative) RSV (RT-PCR) Negative (Negative) SARS-CoV-2 RNA (RT-PCR) Negative (Negative) Critical Care Time Critical Care Time Critical Care Time: No Discharge Plan Discharge Clinical Impression: Gastroenteritis Patient Disposition: Home Condition: Stable Instructions: Antibiotic Form, Gastroenteritis (ED), Clear Liquid Diet (ED) Additional Instructions: Advised clear liquid diet, drink plenty of fluids take medication as prescribed and follow up with primary within 1 week further evaluation treatment. Patient Language: Algerian Prescriptions: New ondansetron 4 mg tablet,disintegrating 4 mg PO Q6H PRN (Reason: nausea and vomiting) Qty: 14 0RF No Action atorvastatin 40 mg tablet See Rx Instructions .ROUTE .COMPLEX Qty: 7 0RF Dose Instruction: TAKE 1 TABLET(S) BY MOUTH 1 TIMES PER DAY *NEW PRESCRIPTION REQUEST* Rx Instructions: TAKE 1 TABLET(S) BY MOUTH 1 TIMES PER DAY *NEW PRESCRIPTION REQUEST* insulin aspart U-100 100 unit/mL (3 mL) insulin pen 7 unit subcut TIDWMEAL Qty: 15 2RF insulin glargine 100 unit/mL (3 mL) insulin pen 21 unit subcut HS Qty: 15 2RF metformin 500 mg tablet See Rx Instructions .ROUTE .COMPLEX Qty: 60 0RF Dose Instruction: TAKE 1 TABLET(S) BY MOUTH 1 TIMES PER DAY *NEW PRESCRIPTION REQUEST* Rx Instructions: TAKE 1 TABLET(S) BY MOUTH 1 TIMES PER DAY *NEW PRESCRIPTION REQUEST* valsartan 40 mg tablet See Rx Instructions .ROUTE .COMPLEX Qty: 90 0RF Dose Instruction: TAKE 1 TABLET(S) BY MOUTH 1 TIMES PER DAY *NEW PRESCRIPTION REQUEST* Rx Instructions: TAKE 1 TABLET(S) BY MOUTH 1 TIMES PER DAY *NEW PRESCRIPTION REQUEST* dapagliflozin propanediol [Farxiga] 10 mg tablet 10 mg PO DAILY Qty: 90 0RF Mounjaro 5 mg/0.5 mL pen injector 5 mg subcut WEEKLY Qty: 2 0RF Rx Instructions: Patient was given one injection while in office- SAMPLE PER RICHARD DURAN LOT- [id number] EXP- 02/02/26 ([facility] [place]) pen needle, diabetic [BD Ultra-Fine Natasha Pen Needle] 32 gauge x 5/32 needle See Rx Instructions .Route Qty: 1200 0RF Rx Instructions: As directed ([facility] [place]) OneTouch Verio test strips Strip See Rx Instructions .ROUTE .COMPLEX Qty: 25 0RF Dose Instruction: USE TO CHECK SUGAR AFTER MEALS AND AT BEDTIME *NEW PRESCRIPTION REQUEST* Rx Instructions: USE TO CHECK SUGAR AFTER MEALS AND AT BEDTIME *NEW PRESCRIPTION REQUEST* (DME) lancets [OneTouch Delica Plus Lancet] 30 gauge misc See Rx Instructions .Route Qty: 100 0RF Rx Instructions: As directed Follow-up/Referrals: Jarad Duran DO [Primary Care Provider] - Time of Disposition: 16:10
[2024-09-17 16:25] VITALS: BP 143/82; PULSE 92; RESP 18; TEMP 36.8; O2SAT 96
--- NOTE | 2024-09-19 13:49 | PC.NURSE ---
Preliminary blood culture; no growth to date.
== END 2024-09-17 16:25 | disposition home or self-care (01) ==
PROVIDERS: Emergency Provider Emergency Medicine; PCP Family Medicine
DX: K52.9 Noninfective gastroenteritis and colitis, unspecified (principal); E11.9 Type 2 diabetes mellitus without complications; I10 Essential (primary) hypertension; F17.210 Nicotine dependence, cigarettes, uncomplicated; Z20.822 Contact with and (suspected) exposure to COVID-19
CPT/HCPCS: 36415; 71045; 74177; 80053; 83605; 83690; 84484; 85025; 85610; 85730; 87040; 87637; 96361; 96374; 96375; 99284; J1885; J2405; J7030; Q9967

== ENCOUNTER 2024-09-20 15:36 | Emergency (ER) | payer MEDICARE, MEDICAID, SELFPAY ==
[2024-09-20] VITALS (25 sets, daily range): BP systolic 129–187; BP diastolic 77–108; PULSE 71–95; RESP 12–20; TEMP 36.6–36.8; O2SAT 93–100
--- NOTE | ~2024-09-20 | CT_ITS ---
EXAMINATION: CT abdomen pelvis w con DATE: 09/20/2024 17:40 INDICATION: abdominal pain/ nausea/ vomiting x1 week TECHNIQUE: Computed tomography (CT) of the abdomen and pelvis was performed with 100 mL Omnipaque-350 intravenous contrast. Automated exposure control and iterative reconstruction technique were employe d. The dose-length product was 553.16 mGy-cm. COMPARISON: 09/17/2024. FINDINGS: Lower thorax: The distal thoracic aorta measures up to 3.0 cm. Liver: Normal. Biliary/Gallbladder: Gallbladder distention, without inflammatory change. Biliary sludge. No definite stones. No bile duct dilation. Pancreas: No mass or duct dilation. Spleen: Normal. Adrenals:No mass. Kidneys: No suspicious mass, obstructing stone, or hydronephrosis. Simple left midpole cyst. GI tract: Mild distal esophageal and gastric wall edema. Large volume of colonic feces. No small or l arge bowel dilation. Mildly dilated mostly air-filled appendix, which is a chronic finding, without i nflammatory change. Mesentery/Peritoneum: No ascites, mass, or free air. Retroperitoneum: No mass. Atherosclerotic calcifications of intra-abdominal arterial vessels. Mild fu siform abdominal aortic aneurysm at the bifurcation measuring up to 3.1 cm. Pelvis: Distended urinary bladder. Prostatomegaly.. Soft Tissues: Uncomplicated appearing fat-containing umbilical hernia Bones: No acute osseous finding. IMPRESSION: Distal thoracic aortic ectasia. Esophagitis/gastritis. Gallbladder hydrops, possibly due to fasting, obstruction considered less likely, particularly if shruti iary labs are normal. Large volume of colonic feces as can be seen with constipation. Distended urinary bladder with prostatomegaly, correlate for symptoms of urinary retention. 3.1 cm fusiform infrarenal abdominal aortic aneurysm. Reviewed, dictated and finalized at location K. IMPRESSION: Distal thoracic aortic ectasia. Esophagitis/gastritis. Gallbladder hydrops, possibly due to fasting, obstruction considered less likel y, particularly if biliary labs are normal. Large volume of colonic feces as can be seen with constipation. Distended urinary bladder with prostatomegaly, correlate for symptoms of urinar y retention. 3.1 cm fusiform infrarenal abdominal aortic aneurysm.
--- NOTE | 2024-09-20 15:38 | ED.GENADULT ---
HPI - General Adult General Chief complaint: Abdominal Pain Stated complaint: n/v, weakness Time Seen by Provider: 09/20/24 15:38 History of Present Illness HPI narrative: Getachew is a 69M with a PMH of DMII, mood disorder, fatty liver, HTN and HLD that presented to the ED via EMS for abdominal pain and nausea. It started 4 days ago. He started Mounjaro and Farxiga the day prior for uncontrolled diabetes. He was seen in the ED 3 days ago for abdominal pain. CT was unremarkable but he did have an elevated Cr. Symptoms became worse so he called EMS. No fevers, hematemesis, CP or dyspnea. Related Data Allergies Allergy/AdvReac Type Severity Reaction Status Date / Time No Known Allergies Allergy Verified 09/20/24 15:53 Review of Systems Review of Systems: All systems reviewed & are unremarkable except as noted in HPI and below PMFSH Past Medical History Medical History Exercise intolerance Umbilical hernia Fatty liver Depression Nicotine dependence Adjustment disorder Hypertension Surgical History Surgical History History of back surgery 3 surgeries. Ruptured discs. . History of left knee surgery 1979' Family History Family History Father , Age 87 Hypertension Diabetes mellitus CAD (coronary artery disease) Mother , Age 74 Aortic aneurysm Social History Social History Smoking packs per day: 0.3 Smoking cigarettes per day: 6.0 Years smoked: 55 Smoking pack-years: 16.50 Smoking status: Current every day smoker Tobacco type: cigarettes Alcohol intake: current Drinks per week: 1 Substance use: current Substance use type: methamphetamine Do You Feel Safe in your Home?: Yes Lack of Transportation: No Lack of Food: Sometimes True Current Housing: I Have Housing Concerned About Future Housing: YES Difficulty Paying Gas/Electric Bills: YES Difficulty Paying for Meds: YES Currently Unemployed: No Education: High School Diploma/GED Difficulty w/ Childcare or Family Care: No Living arrangements: alone Gender identity (if verbalized by the patient): Male Spiritual care concerns: No Exam Const: General: cooperative, healthy appearing, comfortable, no acute distress, well developed, alert, awake and Physically active Orientation/consciousness: oriented to person, oriented to place and oriented to time HENMT: Head: normal to inspection, normocephalic and atraumatic Ears: hearing grossly normal bilaterally and external ears normal Face/Nose/Sinus: Normal external nose present Eyes: General: appearance normal, both eyes and all related structures Periorbital: periorbital findings normal Sclera: sclerae normal Pupils: Equal, round and reactive pupils present Neck: Neck: normal visual inspection Chest: Chest palpation & inspection: normal inspection of the chest Resp: Effort & Inspection: normal respiratory effort, able to speak in complete sentences and no respiratory distress Auscultation: clear to auscultation bilaterally Cardio: Jugular venous distension: no JVD Rate: regular rate Rhythm: regular rhythm GI: Inspection: normal to inspection GI Palp: Yes Soft to palpation Auscultation: normal bowel sounds Other: -mild TTP in the epigastric region -Umbilical hernia present Skin: General skin exam: normal color and no rashes or lesions noted Neuro: General: oriented to person, oriented to place and oriented to time Cranial nerves: Yes Equal, round and reactive pupils present Extrem: General: normal to inspection Course Course Emergency Course: Ordered labs, CT scan, fluids, ondansetron and morphine EKG showed NSR with a rate of 83, no ectopy or ST elevation/depression Labs largely unremarkable with no leukocytosis, anemia, electrolyte disturbances, and his Cr. returned to normal. Lipase WNL as well as troponin. Further history reveals that he has not had his BP meds all week so he was given IV metoprolol. EXAMINATION: CT abdomen pelvis w con DATE: 09/20/2024 17:40 INDICATION: abdominal pain/ nausea/ vomiting x1 week TECHNIQUE: Computed tomography (CT) of the abdomen and pelvis was performed with 100 mL Omnipaque-350 intravenous contrast. Automated exposure control and iterative reconstruction technique were employed. The dose-length product was 553.16 mGy-cm. COMPARISON: 09/17/2024. FINDINGS: Lower thorax: The distal thoracic aorta measures up to 3.0 cm. Liver: Normal. Biliary/Gallbladder: Gallbladder distention, without inflammatory change. Biliary sludge. No definite stones. No bile duct dilation. Pancreas: No mass or duct dilation. Spleen: Normal. Adrenals:No mass. Kidneys: No suspicious mass, obstructing stone, or hydronephrosis. Simple left midpole cyst. GI tract: Mild distal esophageal and gastric wall edema. Large volume of colonic feces. No small or large bowel dilation. Mildly dilated mostly air-filled appendix, which is a chronic finding, without inflammatory change. Mesentery/Peritoneum: No ascites, mass, or free air. Retroperitoneum: No mass. Atherosclerotic calcifications of intra-abdominal arterial vessels. Mild fusiform abdominal aortic aneurysm at the bifurcation measuring up to 3.1 cm. Pelvis: Distended urinary bladder. Prostatomegaly.. Soft Tissues: Uncomplicated appearing fat-containing umbilical hernia Bones: No acute osseous finding. IMPRESSION: Distal thoracic aortic ectasia. Esophagitis/gastritis. Gallbladder hydrops, possibly due to fasting, obstruction considered less likely, particularly if biliary labs are normal. Large volume of colonic feces as can be seen with constipation. Distended urinary bladder with prostatomegaly, correlate for symptoms of urinary retention. 3.1 cm fusiform infrarenal abdominal aortic aneurysm. After the meds he felt better and slept most of the visit. Given the symptoms started right after taking Mounjaro it could be adverse effects from it so will have him stop it. Will give lactulose prescription to help with constipation which could also be contributing to the distended bladder. Will also prescribe pantoprazole for gastritis. It was recommended he f/u soon in clinic. He also stated that he is not having trouble emptying his bladder and he did urinate while in the ED. Vital Signs Vital signs: Vital Signs Temperature 98 F 09/20/24 15:41 Pulse Rate 80 09/20/24 15:41 Respiratory Rate 20 09/20/24 15:41 Pulse Oximetry 98 09/20/24 15:41 Oxygen Delivery Room Air 09/20/24 15:41 Temperature 98 F 09/20/24 15:41 Pulse Rate 76 09/20/24 18:31 Respiratory Rate 17 09/20/24 18:31 Blood Pressure 157/88 H 09/20/24 18:31 Pulse Oximetry 97 09/20/24 18:31 Oxygen Delivery Room Air 09/20/24 15:41 Medical Decision Making Vital Signs Vital Signs: Vital Signs Temperature 98 F 09/20/24 15:41 Pulse Rate 80 09/20/24 15:41 Respiratory Rate 20 09/20/24 15:41 Pulse Oximetry 98 09/20/24 15:41 Oxygen Delivery Room Air 09/20/24 15:41 Temperature 98 F 09/20/24 15:41 Pulse Rate 76 09/20/24 18:31 Respiratory Rate 17 09/20/24 18:31 Blood Pressure 157/88 H 09/20/24 18:31 Pulse Oximetry 97 09/20/24 18:31 Oxygen Delivery Room Air 09/20/24 15:41 Lab Data 09/20/24 16:19 09/20/24 16:19 Labs: Lab Results 09/20/24 Range/Units 16:19 WBC 9.6 (4.8-10.8) K/mm3 RBC 4.77 (4.70-6.10) M/mm3 Hgb 14.8 (12.4-15.3) g/dL Hct 43.8 (37.0-46.0) % MCV 91.8 (78.0-102.0) fL MCH 31.0 (27.0-31.0) pg MCHC 33.8 (32-36) g/dL RDW 11.9 (11.6-14.4) % Plt Count 251 (150-420) K/mm3 MPV 9.8 (8.7-11.0) fl Immature Gran % (Auto) 0.7 H (0.0-0.0) % Neut % (Auto) 76.0 H (50.0-70.0) % Lymph % (Auto) 12.8 L (18.0-42.0) % [place] % (Auto) 9.5 (2.0-11.0) % Eos % (Auto) 0.6 L (1.0-6.0) % Baso % (Auto) 0.4 (0.0-1.0) % Lymph # (Auto) 1.23 (1.10-4.50) K/mm3 [place] # (Auto) 0.91 H (0.10-0.90) K/mm3 Eos # (Auto) 0.06 (0.02-0.50) K/mm3 Baso # (Auto) 0.04 (0.00-0.10) K/mm3 Abs Immat Gran (auto) 0.07 H (0.00-0.00) K/mm3 Absolute Neuts (auto) 7.29 H (1.70-7.20) K/mm3 Absolute Nucleated RBC 0.00 (0.00-0.00) K/mm3 Nucleated RBC % 0.0 (0-0.0) % PT 10.8 (9.50-12.1) Seconds INR 1.0 Sodium 136 (136-145) mmol/L Potassium 4.1 (3.5-5.1) mmol/L Chloride 99 (98-108) mmol/L Carbon Dioxide 27 (21-32) mmol/L Anion Gap 10 (4-12) mmol/L BUN 21 H (7-18) mg/dL Creatinine 1.21 (0.70-1.30) mg/dL Estim Creat Clear Calc 56 ml/min Estimated GFR 59 (59 - ) Glucose 173 H (70-99) mg/dL Calculated Osmolality 289 (285-295) mOsm/kg Lactic Acid 1.6 (0.4-2.0) mmol/L Calcium 9.1 (8.5-10.1) mg/dL Total Bilirubin 0.9 (0.00-1.00) mg/dL AST < 10 L (15-37) U/L ALT 18 (16-63) U/L Alkaline Phosphatase 117 H (46-116) U/L Troponin I 6.2 (0.00-60.4) ng/L Total Protein 7.6 (6.4-8.2) g/dL Albumin 3.5 (3.4-5.0) g/dL Lipase 24 (16-77) U/L Discharge Plan Discharge Clinical Impression: Acute constipation, Gastritis Patient Disposition: Home Condition: Stable Instructions: Abdominal Pain (ED) Additional Instructions: Stop taking the Mounjaro. Follow up in clinic next week. Patient Language: Georgian Prescriptions: New pantoprazole [Protonix] 40 mg tablet,delayed release (DR/EC) 40 mg PO HS Qty: 30 0RF lactulose 20 gram packet 20 g PO BID PRN (Reason: constipation) Qty: 15 0RF No Action ondansetron 4 mg tablet,disintegrating 4 mg PO Q6H PRN (Reason: nausea and vomiting) Qty: 14 0RF atorvastatin 40 mg tablet See Rx Instructions .ROUTE .COMPLEX Qty: 7 0RF Dose Instruction: TAKE 1 TABLET(S) BY MOUTH 1 TIMES PER DAY *NEW PRESCRIPTION REQUEST* Rx Instructions: TAKE 1 TABLET(S) BY MOUTH 1 TIMES PER DAY *NEW PRESCRIPTION REQUEST* insulin aspart U-100 100 unit/mL (3 mL) insulin pen 7 unit subcut TIDWMEAL Qty: 15 2RF insulin glargine 100 unit/mL (3 mL) insulin pen 21 unit subcut HS Qty: 15 2RF metformin 500 mg tablet See Rx Instructions .ROUTE .COMPLEX Qty: 60 0RF Dose Instruction: TAKE 1 TABLET(S) BY MOUTH 1 TIMES PER DAY *NEW PRESCRIPTION REQUEST* Rx Instructions: TAKE 1 TABLET(S) BY MOUTH 1 TIMES PER DAY *NEW PRESCRIPTION REQUEST* valsartan 40 mg tablet See Rx Instructions .ROUTE .COMPLEX Qty: 90 0RF Dose Instruction: TAKE 1 TABLET(S) BY MOUTH 1 TIMES PER DAY *NEW PRESCRIPTION REQUEST* Rx Instructions: TAKE 1 TABLET(S) BY MOUTH 1 TIMES PER DAY *NEW PRESCRIPTION REQUEST* dapagliflozin propanediol [Farxiga] 10 mg tablet 10 mg PO DAILY Qty: 90 0RF Mounjaro 5 mg/0.5 mL pen injector 5 mg subcut WEEKLY Qty: 2 0RF Rx Instructions: Patient was given one injection while in office- SAMPLE PER RICHARD DURAN LOT- [id number] EXP- 02/02/26 (DME) pen needle, diabetic [BD Ultra-Fine Natasha Pen Needle] 32 gauge x 5/32 needle See Rx Instructions .Route Qty: 1200 0RF Rx Instructions: As directed (DME) OneTouch Verio test strips Strip See Rx Instructions .ROUTE .COMPLEX Qty: 25 0RF Dose Instruction: USE TO CHECK SUGAR AFTER MEALS AND AT BEDTIME *NEW PRESCRIPTION REQUEST* Rx Instructions: USE TO CHECK SUGAR AFTER MEALS AND AT BEDTIME *NEW PRESCRIPTION REQUEST* (DME) lancets [OneTouch Delica Plus Lancet] 30 gauge misc See Rx Instructions .Route Qty: 100 0RF Rx Instructions: As directed Follow-up/Referrals: Jarad Duran, [Primary Care Provider] -
--- NOTE | 2024-09-20 15:45 | ECG_ITS ---
Test Date: 2024-09-20 16:01:17 Measurements Intervals [place] Rate: 83 P: 53 WV: 168 QRS: 56 QRSD: 84 T: 60 QT: 372 QTc: 437 Interpretive Statements SINUS RHYTHM BASELINE ARTIFACT- I, II, III NORMAL ECG Compared to ECG 02/22/2024 11:12:27 HEART RATE HAS INCREASED Electronically Signed On 09-20-2024 18:20:04 CDT by Tate Romero D.O.
[2024-09-20] MEDS: LACTATED RINGERS 1,000 ML 999 ML IV CONT (15:55)
[2024-09-20] MEDS: ONDANSETRON INJ 4 MG/2 ML VIAL IV PUSH (15:56)
[2024-09-20] MEDS: MORPHINE SULFATE (*CRX) 4 MG/ML INJ IV PUSH (15:56)
[2024-09-20 16:23] LABS: Basophils Absolute Auto 0.04 K/mm3 (0.00-0.10); Basophils Percent Auto 0.4 % (0.0-1.0); Eosinophils Absolute Auto 0.06 K/mm3 (0.02-0.50); Eosinophils Percent Auto 0.6 % (1.0-6.0); Hematocrit 43.8 % (37.0-46.0); Hemoglobin 14.8 g/dL (12.4-15.3); Immature Granulocyte Absolute 0.07 K/mm3 (0.00-0.00); Immature Granulocyte Percent A 0.7 % (0.0-0.0); Lymphocytes Absolute Auto 1.23 K/mm3 (1.10-4.50); Lymphocytes Percent Auto 12.8 % (18.0-42.0); Mean Corpuscular HGB Conc 33.8 g/dL (32-36); Mean Corpuscular Volume 91.8 fL (78.0-102.0); Mean Platelet Volume 9.8 fl (8.7-11.0); Monocytes Absolute Auto 0.91 K/mm3 (0.10-0.90); Monocytes Percent Auto 9.5 % (2.0-11.0); Neutrophils Absolute Auto 7.29 K/mm3 (1.70-7.20); Platelet Count Result 251 K/mm3 (150-420); Red Blood Count 4.77 M/mm3 (4.70-6.10); Red Cell Distribution Width 11.9 % (11.6-14.4); White Blood Count 9.6 K/mm3 (4.8-10.8)
[2024-09-20 16:39] LABS: Alanine Aminotransferase 18 U/L (16-63); Albumin Level 3.5 g/dL (3.4-5.0); Alkaline Phosphatase 117 U/L (46-116); Anion Gap 10 mmol/L (4-12); Aspartate Amino Transferase < 10 U/L (15-37); Bilirubin,Total 0.9 mg/dL (0.00-1.00); Blood Urea Nitrogen 21 mg/dL (7-18); Calcium 9.1 mg/dL (8.5-10.1); Carbon Dioxide 27 mmol/L (21-32); Chloride 99 mmol/L (98-108); Estimated CRCL calculation 56 ml/min; Estimated Glomerular Filt Rate 59; Glucose 173 mg/dL (70-99); Lactic Acid Reflex 1.6 mmol/L (0.4-2.0); Lipase 24 U/L (16-77); Osmolality Calculated 289 mOsm/kg (285-295); Potassium 4.1 mmol/L (3.5-5.1); Sodium 136 mmol/L (136-145); Total Protein 7.6 g/dL (6.4-8.2); Troponin I 6.2 ng/L (0.00-60.4)
--- NOTE | 2024-09-20 16:45 | PC.NURSE ---
Patient asleep on stretcher, able to wake with verbal stimulation. Patient denies ability to urinate at this time.
--- NOTE | 2024-09-20 17:10 | PC.NURSE ---
ERP is aware blood pressures have been running consistently high. Patient reports he has not been able to take his medication due to vomiting.
[2024-09-20 17:31] LABS: Prothrombin Time 10.8 Seconds (9.50-12.1)
[2024-09-20] MEDS: METOPROLOL TARTRATE INJ 5 MG/5 ML VIAL IV PUSH (17:38)
== END 2024-09-20 18:53 | disposition home or self-care (01) ==
PROVIDERS: Emergency Provider Family Medicine; PCP Family Medicine
DX: K29.70 Gastritis, unspecified, without bleeding (principal); K59.00 Constipation, unspecified; E11.9 Type 2 diabetes mellitus without complications; I10 Essential (primary) hypertension; E78.5 Hyperlipidemia, unspecified; F17.210 Nicotine dependence, cigarettes, uncomplicated
CPT/HCPCS: 36415; 74177; 80053; 83605; 83690; 84484; 85025; 85610; 93005; 96361; 96374; 96375; 99284; J2270; J2405; J7120; Q9967